=== PATIENT | male | born 1975 | race Caucasian/White ===

== ENCOUNTER 2016-07-02 12:51 | Emergency (ER) ==
[2016-07-02 13:33] VITALS: BP 152/102; TEMP 96.7; BMI 26.4
--- NOTE | 2016-07-02 13:41 | ED.PDOC ---
General ED Provider: Dr. PILI HANCOCK Chief Complaint: Tooth Problem Stated Complaint: patient is a 40 year old male who comes to the ER with a recent history of dental extraction after which he developed blisters to gums for which he saw his dentist and was diagnosed with fever blisters and given acyclovir. He had completed 2 rounds of clindamycin prior to extraction. he states that the gum pain is not better and is due to see his dentist and PCP next week. He also complaint of occipital area scalp skin lesion like freckels Time Seen by Physician: 13:20 Mode of Arrival: Walk-In Information Source: Patient Exam Limitations: No limitations Primary Care Provider: ZHENG GARCIA Nursing and Triage Documentation Reviewed and Agree: Yes EENT Complaint Exam - Dental/Oral Complaint/Exam Onset/Duration: 2 weeks Symptoms Are: Still present Timing: Constant Initial Severity: Moderate Current Severity: Moderate Location: gums Character: Reports: Aching, Throbbing Aggravating: Reports: Heat, Cold, Chewing Alleviating: Reports: None Associated Signs and Symptoms: Reports: Swelling Dental/Oral Surgical History: Reports: Periodontal Surgery Cervical Lymphadenopathy Present: No Facial Swelling Present: No Bleeding Present: No Oropharynx Findings: Absent: Clots, Active bleeding Septal Hematoma: No Foreign Body Present: No Dysphagia Present: No Drooling Present: No Asymmetrical Tonsillar Swelling Present: No Uvula Midline: No Jigna-tonsillar Fluctuence: No Trismus Present: No Palatal Petechiae Present: No Scarlatinaform Rash Present: No Lesions: Present: Gums. Absent: Lip, Tongue, Buccal Mucosa, Pharynx Exanthem: Absent: Lip, Gums, Tongue, Buccal Mucosa, Pharynx Vesicles: Absent: Lip, Gums, Tongue, Buccal Mucosa, Pharynx Differential Diagnoses: Gingivitis Review of Systems - Review Of Systems Constitutional: Reports: No symptoms Eyes: Reports: No symptoms Ears, Nose, Mouth, Throat: Reports: Mouth pain, Mouth swelling Respiratory: Reports: No symptoms Cardiac: Reports: No symptoms GI: Reports: No symptoms : Reports: No symptoms Musculoskeletal: Reports: No symptoms Skin: Reports: No symptoms Neurological: Reports: No symptoms Endocrine: Reports: No symptoms Hematologic/Lymphatic: Reports: No symptoms All Other Systems: Reviewed and Negative Past Medical History - Past Medical History Previously Healthy: No Endocrine: Reports: None Cardiovascular: Reports: CAD, Hypertension, CHF Respiratory: Reports: None Hematological: Reports: None Gastrointestinal: Reports: None Genitourinary: Reports: None Neuro/Psych: Reports: Anxiety Musculoskeletal: Reports: None Cancer: Reports: None 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, Fracture of right knee - Surgical History General Surgical History: Reports: Stent - Family History Family History: Reports: None - Social History Smoking Status: Current some day smoker, Dips snuff Hx Substance Use: Yes Alcohol Screening: None Physical Exam - Physical Exam Appearance: Ill-appearing Ill-appearing: Mild Pain Distress: Severe Eyes: JAYLYN, EOMI ENT: Erythema Neck: Supple Respiratory: Airway patent, Breath sounds clear, Breath sounds equal, Respirations nonlabored Cardiovascular: RRR, Pulses normal, No rub, No murmur Skin: Warm, Dry Psychiatric: Anxious Critical Care Note - Critical Care Note Total Time (mins): 0 Course - Course Vital Signs: Temp Pulse Resp BP Pulse Ox 07/02/16 12:52 96.7 F L 103 H 18 152/102 H 99 Departure - Departure Time of Disposition: 13:42 Disposition: HOME SELF-CARE Discharge Problem: Skin lesion of scalp, Gingivitis Instructions: Gingivitis (ED), Impetigo (ED) Condition: Fair Pt referred to PMD for follow-up: Yes Additional Instructions: Take medications as prescribed. Follow up with PCP in 2-3 days Prescriptions: Lidocaine HCl [Lidocaine Viscous 2%] 100 ml MM TID PRN #100 ml PRN Reason: mouth pain Mupirocin Calcium [Mupirocin] 30 gm TP BID #30 cream..g. Tramadol HCl [Ultram] 50 mg PO Q6H PRN #20 tablet PRN Reason: Severe Pain Allergies/Adverse Reactions: Allergies ketorolac tromethamine [From Toradol] Adverse Reaction (Verified 06/12/16 13:45) Penicillins Adverse Reaction (Verified 06/12/16 13:45) venom-wasp [Wasp Venom] Adverse Reaction (Verified 06/12/16 13:45) Home Medications: Ambulatory Orders Carvedilol [Coreg] 6.25 mg PO BID 04/23/13 Hydrochlorothiazide 12.5 mg PO DAILY 04/23/13 Lisinopril [Zestril] 20 mg PO BID 05/14/13 Nitroglycerin [Nitrostat] 0.4 mg SL DIRECTED PRN 07/23/13 Aspirin [Aspir-Low] 81 mg PO DAILY 03/01/16 Famotidine [Pepcid] 20 mg PO BID 03/01/16 Clonazepam 1 mg PO TID #90 06/09/16 Lidocaine HCl [Lidocaine Viscous 2%] 100 ml MM TID PRN #100 ml 07/02/16 Mupirocin Calcium [Mupirocin] 30 gm TP BID #30 cream..g. 07/02/16 Tramadol HCl [Ultram] 50 mg PO Q6H PRN #20 tablet 07/02/16 Disposition Discussed With: Patient, Family
== END 2016-07-02 14:02 | disposition home or self-care (01) ==
LOC: ED 12:51
DX: K05.10 Chronic gingivitis, plaque induced (principal); L98.8 Other specified disorders of the skin and subcutaneous tissue; Z98.890 Other specified postprocedural states; F17.290 Nicotine dependence, other tobacco product, uncomplicated
CPT/HCPCS: 99282

== ENCOUNTER 2016-07-19 13:14 | Emergency (ER) ==
[2016-07-19 13:20] VITALS: BP 142/99; TEMP 97.3; BMI 27.0
== END 2016-07-19 13:30 | disposition left against medical advice (07) ==
LOC: ED 13:14
DX: S01.90XA Unspecified open wound of unspecified part of head, initial encounter (principal)
CPT/HCPCS: 99281

== ENCOUNTER 2016-07-20 14:09 | Emergency (ER) ==
[2016-07-20 14:22] VITALS: BP 128/88; TEMP 97.1; BMI 27.8
== END 2016-07-20 15:20 | disposition left against medical advice (07) ==
LOC: ED 14:09
DX: Z53.21 Procedure and treatment not carried out due to patient leaving prior to being seen by health care provider (principal)

== ENCOUNTER 2016-07-23 10:51 | Emergency (ER) ==
[2016-07-23 10:59] VITALS: TEMP 96.3; BMI 29.2
[2016-07-23 11:06] VITALS: BP 144/94
--- NOTE | 2016-07-23 11:15 | ED.PDOC ---
General ED Provider: Dr. DEVIN MORIN Chief Complaint: Tooth Problem Stated Complaint: Gums with sores, knots on back of neck, sores on scalp; headache Time Seen by Physician: 11:10 Mode of Arrival: Walk-In Information Source: Patient Exam Limitations: No limitations Primary Care Provider: ZHENG GARCIA Nursing and Triage Documentation Reviewed and Agree: Yes Review of Systems - Review Of Systems Constitutional: Reports: No symptoms Eyes: Reports: No symptoms Ears, Nose, Mouth, Throat: Reports: Mouth pain (gums (post extraction) - "sores ") Skin: Reports: Rash (scalp "sores") Neurological: Reports: Headache All Other Systems: Reviewed and Negative Past Medical History - Past Medical History Previously Healthy: No Endocrine: Reports: None Cardiovascular: Reports: CAD, Hypertension, CHF Respiratory: Reports: None Hematological: Reports: None Gastrointestinal: Reports: None Genitourinary: Reports: None Neuro/Psych: Reports: Anxiety Musculoskeletal: Reports: None Cancer: Reports: None 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, Fracture of right knee - Surgical History General Surgical History: Reports: Stent - Family History Family History: Reports: None - Social History Smoking Status: Current some day smoker, Chews tobacco Hx Substance Use: No Alcohol Screening: None Physical Exam - Physical Exam Appearance: Well-appearing Pain Distress: Mild Eyes: JAYLYN ENT: Oropharynx normal Respiratory: Airway patent Skin: Warm, Dry, Normal color (Except small areas of superficial infection posterior and superior scalp) Neurological: Sensation intact, Alert, Oriented Psychiatric: Affect appropriate, Mood appropriate Critical Care Note - Critical Care Note Total Time (mins): 5 Course - Course Vital Signs: Temp Pulse Resp BP Pulse Ox 07/23/16 11:05 96.3 F L 97 H 18 144/94 H 98 07/23/16 10:52 96.3 F L 97 H 18 144/93 H 99 Departure - Departure Time of Disposition: 11:23 Disposition: HOME SELF-CARE Discharge Problem: Gingivitis, Cellulitis Instructions: Gingivitis (ED) Condition: Good Pt referred to PMD for follow-up: Yes Additional Instructions: Use pain medication as needed; follow up with Mr. Yosef SHAH at [facility] or with dentist. Prescriptions: Tramadol HCl [Ultram] 50 mg PO Q6H #10 tablet Allergies/Adverse Reactions: Allergies ketorolac tromethamine [From Toradol] Adverse Reaction (Verified 07/23/16 10:59) Penicillins Adverse Reaction (Verified 07/23/16 10:59) venom-wasp [Wasp Venom] Adverse Reaction (Verified 07/23/16 10:59) Home Medications: Ambulatory Orders Carvedilol [Coreg] 6.25 mg PO BID 04/23/13 Hydrochlorothiazide 12.5 mg PO DAILY 04/23/13 Lisinopril [Zestril] 20 mg PO BID 05/14/13 Nitroglycerin [Nitrostat] 0.4 mg SL DIRECTED PRN 07/23/13 Aspirin [Aspir-Low] 81 mg PO DAILY 03/01/16 Famotidine [Pepcid] 20 mg PO BID 03/01/16 Clonazepam 1 mg PO TID #90 06/09/16 Griseofulvin Ultramicrosize 125 mg PO Q8HR 07/19/16 Tramadol HCl [Ultram] 50 mg PO Q6H #10 tablet 07/23/16 Disposition Discussed With: Patient
== END 2016-07-23 11:34 | disposition home or self-care (01) ==
LOC: ED 10:51
DX: K05.10 Chronic gingivitis, plaque induced (principal); L03.90 Cellulitis, unspecified; R51 Headache; F17.210 Nicotine dependence, cigarettes, uncomplicated; Z79.899 Other long term (current) drug therapy
CPT/HCPCS: 99282

== ENCOUNTER 2016-08-07 13:55 | Emergency (ER) ==
[2016-08-07 14:02] VITALS: BP 141/88; TEMP 97.8; BMI 27.8
--- NOTE | 2016-08-07 14:12 | ED.PDOC ---
General ED Provider: Dr. BRIAN CHERY JR Chief Complaint: Non-specific Complaint Stated Complaint: HAD SEVERAL DENTAL EXTRACTIONS DONE AND THEN DEVELOPED MOUTH BLISTERS WHICH HAVE REOCCURED AT INTERVALS--STATES CONTINUES TO HAVE MOUTH INFECTIONS--HAS SEEN DENTIST AGAIN--HAS BEEN ON SEVERAL ROUNDS OF ANTIBIOTICS-- ALSO HAS LESIONS TO BACK OF SCALP[ End ]STATES HAS CONSTANT INFECTION TO MOUTH SINCE DENTAL EXTRACTION DONE--STATES IS NOT SEEKING PAIN MEDS--JUST WANTS MOUTH FIXED[ End ]97.8 114 20 97% 14101/02 HAD SEVERAL DENTAL EXTRACTIONS DONE AND THEN DEVELOPED MOUTH BLISTERS WHICH HAVE REOCCURED AT INTERVALS--STATES CONTINUES TO HAVE MOUTH INFECTIONS--HAS SEEN DENTIST AGAIN--HAS BEEN ON SEVERAL ROUNDS OF ANTIBIOTICS--ALSO HAS LESIONS TO BACK OF SCALP. [ End ]97.8 11 20 97 % 14101/02- oral lesons appear resolved- still feel like glass shards to patient, scalp lesions appear to be healing- getting larger and speading per patient:discussed need to see dentist and to use warm packs on head. : : Gums with sores, knots on back of neck, sores on scalp; headache: Gingivitis (ED). : 07/02/16 recent history of dental extraction blisters to gums fever blisters and given acyclovir. 2 rounds of clindamycin prior to extraction. gum pain is not better and to see his dentist and PCP next week. He also complaint of occipital area scalp skin lesion like freckels. Skin lesion of scalp, Gingivitis: Gingivitis (ED), Impetigo (ED). Lidocaine HCl [ Lidocaine Viscous 2%] 100 ml MM TID. Mupirocin Calcium [Mupirocin] 30 gm TP BID #30 cream..g. Tramadol HCl [Ultram] 50 mg PO Q6H PRN #20 tablet. : : my gums hurts and they are swollen--tylenol 3 is not helping my pain: Mouth pain, Mouth swelling: Gingivitis (ED). : 04/29/16 : im seeing ortho for fx in my tibia--i fell again last night and hurt my knee again--i can have script fo pain because i have a contract. : Radiologist: Negative: CT Scan. Dilaudid Phenergan : Knee Pain (ED). [From Toradol] Adverse Reaction Penicillins Adverse Reaction [Wasp Venom] Adverse Reaction [Coreg] Hydrochlorothiazide 12.5 mg[Zestril] [Nitrostat] [Aspir-Low] [Pepcid] [ Wellbutrin Sr] [Klonopin] [[place] 5-325 Tablet] [Fioricet 50-300-40 Mg Capsule] Time Seen by Physician: 14:21 Mode of Arrival: Walk-In Information Source: Patient Exam Limitations: No limitations Primary Care Provider: ZHENG GARCIA Nursing and Triage Documentation Reviewed and Agree: No Review of Systems - Review Of Systems Constitutional: Reports: No symptoms Eyes: Reports: No symptoms Ears, Nose, Mouth, Throat: Reports: Mouth pain Respiratory: Reports: No symptoms Cardiac: Reports: No symptoms GI: Reports: No symptoms : Reports: No symptoms Musculoskeletal: Reports: No symptoms Skin: Reports: Lesions, Lumps Neurological: Reports: No symptoms Endocrine: Reports: No symptoms Hematologic/Lymphatic: Reports: No symptoms All Other Systems: Other Past Medical History - Past Medical History Previously Healthy: No Endocrine: Reports: None Cardiovascular: 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), Hypertension, CHF Respiratory: Reports: None Hematological: Reports: None Gastrointestinal: Reports: None Genitourinary: Reports: None Neuro/Psych: Reports: Anxiety, Other (Optic nerve Atrophy of left eye) Musculoskeletal: Reports: None Cancer: Reports: None - Surgical History General Surgical History: Reports: Stent (PT HAS A HX OF 2 HEART CATHS AND ONE STENT PLACED), Orthopedic (Fracture of right knee) - Family History Family History: Reports: None, Heart (PGF) - Social History Smoking Status: Current some day smoker, Chews tobacco Hx Substance Use: No Alcohol Screening: None Physical Exam - Physical Exam Appearance: Well-appearing Ill-appearing: Mild Pain Distress: Mild Eyes: JAYLYN, EOMI, Conjunctiva clear ENT: Ears normal, Nose normal, Oropharynx normal (edentulous; complains of pain ; no lesions on exam) Neck: Supple Respiratory: Airway patent, Breath sounds clear, Breath sounds equal, Respirations nonlabored Cardiovascular: RRR, Pulses normal, No rub, No murmur GI/: Soft, Nontender, No masses, Bowel sounds normal, No Organomegaly Musculoskeletal: Normal strength, ROM intact, No edema, No calf tenderness Skin: Warm, Dry, Normal color Neurological: Sensation intact, Motor intact, Reflexes intact, Cranial nerves intact, Alert, Oriented Critical Care Note - Critical Care Note Total Time (mins): 0 Course - Course Vital Signs: Temp Pulse Resp BP Pulse Ox 08/07/16 13:55 97.8 F 114 H 20 141/88 H 97 Departure - Departure Time of Disposition: 14:23 Disposition: HOME SELF-CARE Discharge Problem: Pain in gums, Folliculitis Instructions: Folliculitis (ED), Gingivostomatitis (ED) Condition: Good Pt referred to PMD for follow-up: Yes Additional Instructions: neurontin four times a day for pain- only as needed warm soaks to scalp two to four times a day continue prescribed ointment Prescriptions: Gabapentin 300 mg PO TID PRN #30 capsule PRN Reason: PAIN Allergies/Adverse Reactions: Allergies ketorolac tromethamine [From Toradol] Adverse Reaction (Verified 08/07/16 14:03) Penicillins Adverse Reaction (Verified 08/07/16 14:03) venom-wasp [Wasp Venom] Adverse Reaction (Verified 08/07/16 14:03) Home Medications: Ambulatory Orders Carvedilol [Coreg] 6.25 mg PO BID 04/23/13 Hydrochlorothiazide 12.5 mg PO DAILY 04/23/13 Lisinopril [Zestril] 20 mg PO BID 05/14/13 Nitroglycerin [Nitrostat] 0.4 mg SL DIRECTED PRN 07/23/13 Aspirin [Aspir-Low] 81 mg PO DAILY 03/01/16 Famotidine [Pepcid] 20 mg PO BID 03/01/16 Clonazepam 1 mg PO TID #90 06/09/16 Gabapentin 300 mg PO TID PRN #30 capsule 08/07/16
== END 2016-08-07 14:33 | disposition home or self-care (01) ==
LOC: ED 13:55
DX: K05.10 Chronic gingivitis, plaque induced (principal); L73.9 Follicular disorder, unspecified; F17.220 Nicotine dependence, chewing tobacco, uncomplicated
CPT/HCPCS: 99282

== ENCOUNTER 2016-10-30 11:59 | Emergency (ER) ==
[2016-10-30 12:11] VITALS: BP 138/90; TEMP 97.2; BMI 26.4
--- NOTE | 2016-10-30 12:20 | ED.PDOC ---
General ED Provider: Dr. JAI RODRÍGUEZ Chief Complaint: Tooth Problem Stated Complaint: dental , oral pain Time Seen by Physician: 12:00 Mode of Arrival: Walk-In Information Source: Patient Exam Limitations: No limitations Primary Care Provider: BERNARD TRIPLETT Nursing and Triage Documentation Reviewed and Agree: Yes EENT Complaint Exam - Dental/Oral Complaint/Exam Mechanism of Injury: No known trauma Onset/Duration: chronic Symptoms Are: Still present Timing: Constant Initial Severity: Mild Current Severity: Mild Character: Reports: Dull, Aching Aggravating: Reports: None Alleviating: Reports: None Associated Signs and Symptoms: Denies: Swelling, Discharge, Fever, Foul odor, Foul taste in mouth Related History: Reports: Similar episode Cardiac Risk Factors: Reports: None Dental/Oral Surgical History: Reports: None Facial Swelling Present: No Bleeding Present: No Septal Hematoma: No Foreign Body Present: No Dysphagia Present: No Drooling Present: No Asymmetrical Tonsillar Swelling Present: No Uvula Midline: No Jigna-tonsillar Fluctuence: No Trismus Present: No Palatal Petechiae Present: No Scarlatinaform Rash Present: No Review of Systems - Review Of Systems Constitutional: Reports: No symptoms Eyes: Reports: No symptoms Ears, Nose, Mouth, Throat: Reports: No symptoms Respiratory: Reports: No symptoms Cardiac: Reports: No symptoms GI: Reports: No symptoms : Reports: No symptoms Musculoskeletal: Reports: No symptoms Skin: Reports: No symptoms Neurological: Reports: No symptoms Endocrine: Reports: No symptoms Hematologic/Lymphatic: Reports: No symptoms All Other Systems: Reviewed and Negative Past Medical History - Past Medical History Previously Healthy: No Endocrine: Reports: None Cardiovascular: 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), Hypertension, CHF Respiratory: Reports: None Hematological: Reports: None Gastrointestinal: Reports: None Genitourinary: Reports: None Neuro/Psych: Reports: Anxiety, Other (Optic nerve Atrophy of left eye) Musculoskeletal: Reports: None Cancer: Reports: None - Surgical History General Surgical History: Reports: Stent (PT HAS A HX OF 2 HEART CATHS AND ONE STENT PLACED), Orthopedic (Fracture of right knee) - Family History Family History: Reports: None, Heart (PGF) - Social History Smoking Status: Current some day smoker, Chews tobacco Hx Substance Use: No Alcohol Screening: None - Immunizations Tetanus Shot up to Date: No Physical Exam - Physical Exam Appearance: Well-appearing, No pain distress, Well-nourished Eyes: JAYLYN, EOMI, Conjunctiva clear ENT: Ears normal, Nose normal, Oropharynx normal Respiratory: Airway patent, Breath sounds clear, Breath sounds equal, Respirations nonlabored Cardiovascular: RRR, Pulses normal, No rub, No murmur GI/: Soft, Nontender, No masses, Bowel sounds normal, No Organomegaly Musculoskeletal: Normal strength, ROM intact, No edema, No calf tenderness Skin: Warm, Dry, Normal color Neurological: Sensation intact, Motor intact, Reflexes intact, Cranial nerves intact, Alert, Oriented Psychiatric: Affect appropriate, Mood appropriate Critical Care Note - Critical Care Note Total Time (mins): 0 Course - Course Vital Signs: Temp Pulse Resp BP Pulse Ox 10/30/16 12:00 97.2 F L 81 16 138/90 100 Departure - Departure Time of Disposition: 12:19 Disposition: HOME SELF-CARE Discharge Problem: Chronic gum disease Instructions: Gingivostomatitis (ED) Condition: Good Pt referred to PMD for follow-up: No Additional Instructions: Please call your Family Physician as soon as possible to schedule a follow-up appointment. Allergies/Adverse Reactions: Allergies ketorolac tromethamine [From Toradol] Adverse Reaction (Verified 10/30/16 12:10) Penicillins Adverse Reaction (Verified 10/30/16 12:10) venom-wasp [Wasp Venom] Adverse Reaction (Verified 10/30/16 12:10) Home Medications: Ambulatory Orders Carvedilol [Coreg] 6.25 mg PO BID 04/23/13 Hydrochlorothiazide 12.5 mg PO DAILY 04/23/13 Lisinopril [Zestril] 20 mg PO BID 05/14/13 Nitroglycerin [Nitrostat] 0.4 mg SL DIRECTED PRN 07/23/13 Aspirin [Aspir-Low] 81 mg PO DAILY 03/01/16 Famotidine [Pepcid] 20 mg PO BID 03/01/16 Clonazepam 1 mg PO TID #90 06/09/16 Gabapentin 300 mg PO TID PRN #30 capsule 08/07/16
== END 2016-10-30 12:28 | disposition home or self-care (01) ==
LOC: ED 11:59
DX: K05.10 Chronic gingivitis, plaque induced (principal); F17.210 Nicotine dependence, cigarettes, uncomplicated; F17.220 Nicotine dependence, chewing tobacco, uncomplicated
CPT/HCPCS: 99282

== ENCOUNTER 2016-10-31 23:20 | Emergency (ER) ==
[2016-10-31 23:36] VITALS: BP 148/95; TEMP 98.1; BMI 27.0
[2016-10-31] MEDS ORDERED: AUGMENTIN 500-125 MG TAB PO STA (23:47)
[2016-10-31] MEDS ORDERED: NORCO 7.5-325 PO STA (23:47)
--- NOTE | 2016-10-31 23:50 | ED.PDOC ---
General ED Provider: Dr. TRENTON CHAND Chief Complaint: Tooth Problem Stated Complaint: swollen gums, and hurting, Time Seen by Physician: 23:48 Mode of Arrival: Walk-In Information Source: Patient Primary Care Provider: BERNARD TRIPLETT Nursing and Triage Documentation Reviewed and Agree: Yes EENT Complaint Exam - Dental/Oral Complaint/Exam Mechanism of Injury: Unknown Symptoms Are: Still present Timing: Constant Initial Severity: Mild Current Severity: Mild Character: Reports: Dull, Aching Aggravating: Reports: Chewing Alleviating: Reports: None Associated Signs and Symptoms: Reports: Swelling, Foul odor, Foul taste in mouth Related History: Reports: Similar episode Cardiac Risk Factors: Reports: None Dental/Oral Surgical History: Reports: None Tooth Findings: Present: Cellulitis Cervical Lymphadenopathy Present: No Facial Swelling Present: No Differential Diagnoses: Dental Abcess, Gingivitis Review of Systems - Review Of Systems Constitutional: Reports: No symptoms Eyes: Reports: No symptoms Ears, Nose, Mouth, Throat: Reports: Mouth pain Respiratory: Reports: No symptoms Cardiac: Reports: No symptoms GI: Reports: No symptoms : Reports: No symptoms Musculoskeletal: Reports: No symptoms Skin: Reports: No symptoms Neurological: Reports: No symptoms Endocrine: Reports: No symptoms Hematologic/Lymphatic: Reports: No symptoms All Other Systems: Reviewed and Negative Past Medical History - Past Medical History Previously Healthy: No Endocrine: Reports: None Cardiovascular: 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), Hypertension, CHF Respiratory: Reports: None Hematological: Reports: None Gastrointestinal: Reports: None Genitourinary: Reports: None Neuro/Psych: Reports: Anxiety, Other (Optic nerve Atrophy of left eye) Musculoskeletal: Reports: None Cancer: Reports: None - Surgical History General Surgical History: Reports: Stent (PT HAS A HX OF 2 HEART CATHS AND ONE STENT PLACED), Orthopedic (Fracture of right knee) - Family History Family History: Reports: None, Heart (PGF) - Social History Smoking Status: Current some day smoker, Chews tobacco, Dips snuff Hx Substance Use: No Alcohol Screening: None - Immunizations Tetanus Shot up to Date: Yes Physical Exam - Physical Exam Appearance: Well-appearing, No pain distress, Well-nourished Eyes: JAYLYN, EOMI, Conjunctiva clear ENT: Ears normal, Nose normal, Oropharynx normal Respiratory: Airway patent, Breath sounds clear, Breath sounds equal, Respirations nonlabored Cardiovascular: RRR, Pulses normal, No rub, No murmur GI/: Soft, Nontender, No masses, Bowel sounds normal, No Organomegaly Musculoskeletal: Normal strength, ROM intact, No edema, No calf tenderness Skin: Warm, Dry, Normal color Neurological: Sensation intact, Motor intact, Reflexes intact, Cranial nerves intact, Alert, Oriented Psychiatric: Affect appropriate, Mood appropriate Critical Care Note - Critical Care Note Total Time (mins): 0 Course - Course Orders, Labs, Meds: Orders Category Date Time Status Amoxicillin/Potassium Clav [Augmentin 500-125 mg Tab] MEDS 10/31/16 23:47 Stat 1 tab PO ONCE STA Hydrocodone Bit/Acetaminophen [[place] 7.5-325] MEDS 10/31/16 23:47 Stat 1 tab PO ONCE STA Vital Signs: Temp Pulse Resp BP Pulse Ox 10/31/16 23:24 98.1 F 86 20 148/95 H 95 Departure - Departure Time of Disposition: 00:00 Disposition: HOME SELF-CARE Discharge Problem: Gingivitis Instructions: Gingivitis (ED) Condition: Stable Pt referred to PMD for follow-up: Yes (dentist.) Additional Instructions: NO DIPPING Prescriptions: Clindamycin HCl 300 mg PO TID #15 capsule Hydrocodone Bit/Acetaminophen [[place] 7.5-325] 1 each PO Q8H #14 tablet Allergies/Adverse Reactions: Allergies ketorolac tromethamine [From Toradol] Adverse Reaction (Verified 10/31/16 23:35) Penicillins Adverse Reaction (Verified 10/31/16 23:35) venom-wasp [Wasp Venom] Adverse Reaction (Verified 10/31/16 23:35) Home Medications: Ambulatory Orders Carvedilol [Coreg] 6.25 mg PO BID 04/23/13 Hydrochlorothiazide 12.5 mg PO DAILY 04/23/13 Lisinopril [Zestril] 20 mg PO BID 05/14/13 Nitroglycerin [Nitrostat] 0.4 mg SL DIRECTED PRN 07/23/13 Famotidine [Pepcid] 20 mg PO BID 03/01/16 Gabapentin 300 mg PO TID 10/31/16 Clindamycin HCl 300 mg PO TID #15 capsule 11/01/16 Hydrocodone Bit/Acetaminophen [[place] 7.5-325] 1 each PO Q8H #14 tablet 11/01/16 Disposition Discussed With: Patient, Family
== END 2016-11-01 00:25 | disposition home or self-care (01) ==
LOC: ED 23:20
DX: K05.10 Chronic gingivitis, plaque induced (principal); F17.210 Nicotine dependence, cigarettes, uncomplicated; F17.220 Nicotine dependence, chewing tobacco, uncomplicated
CPT/HCPCS: 99283

== ENCOUNTER 2016-12-02 08:22 | Emergency (ER) ==
[2016-12-02 08:25] VITALS: BP 139/86; TEMP 96.9; BMI 27.0
--- NOTE | 2016-12-02 08:47 | ED.PDOC ---
General ED Provider: Dr. TRENTON CHAND Chief Complaint: Tooth Problem Stated Complaint: gums swollen painful, foul smell. seen dentist 10 days ago, Time Seen by Physician: 08:45 Mode of Arrival: Walk-In Information Source: Patient Primary Care Provider: BERNARD TRIPLETT Nursing and Triage Documentation Reviewed and Agree: Yes EENT Complaint Exam - Dental/Oral Complaint/Exam Mechanism of Injury: No known trauma Symptoms Are: Still present Timing: Constant Initial Severity: Moderate Current Severity: Moderate Character: Reports: Aching Aggravating: Reports: Chewing Alleviating: Reports: None Associated Signs and Symptoms: Reports: Swelling, Foul odor, Foul taste in mouth Related History: Reports: Similar episode Cardiac Risk Factors: Reports: None Dental/Oral Surgical History: Reports: None Tooth Findings: Present: Normal findings (no teeth, all the gums swollen, ), Percussion tenderness Cervical Lymphadenopathy Present: No Facial Swelling Present: No Bleeding Present: No Septal Hematoma: No Foreign Body Present: No Differential Diagnoses: Gingivitis Review of Systems - Review Of Systems Constitutional: Reports: No symptoms Eyes: Reports: No symptoms Ears, Nose, Mouth, Throat: Reports: Mouth pain Respiratory: Reports: No symptoms Cardiac: Reports: No symptoms GI: Reports: No symptoms : Reports: No symptoms Musculoskeletal: Reports: No symptoms Skin: Reports: No symptoms Neurological: Reports: No symptoms Endocrine: Reports: No symptoms Hematologic/Lymphatic: Reports: No symptoms All Other Systems: Reviewed and Negative Past Medical History - Past Medical History Previously Healthy: No Endocrine: Reports: None Cardiovascular: 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), Hypertension, CHF Respiratory: Reports: None Hematological: Reports: None Gastrointestinal: Reports: None Genitourinary: Reports: None Neuro/Psych: Reports: Anxiety, Other (Optic nerve Atrophy of left eye) Musculoskeletal: Reports: None Cancer: Reports: None - Surgical History General Surgical History: Reports: Stent (PT HAS A HX OF 2 HEART CATHS AND ONE STENT PLACED), Orthopedic (Fracture of right knee) - Family History Family History: Reports: None, Heart (PGF) - Social History Smoking Status: Current some day smoker, Chews tobacco, Dips snuff Hx Substance Use: No Alcohol Screening: None Physical Exam - Physical Exam Appearance: Ill-appearing, Obese Pain Distress: Moderate Eyes: JAYLYN, EOMI, Conjunctiva clear ENT: Ears normal, Nose normal, Oropharynx normal Respiratory: Airway patent, Breath sounds clear, Breath sounds equal, Respirations nonlabored Cardiovascular: RRR, Pulses normal, No rub, No murmur GI/: Soft, Nontender, No masses, Bowel sounds normal, No Organomegaly Musculoskeletal: Normal strength, ROM intact, No edema, No calf tenderness Skin: Warm, Dry, Normal color Neurological: Sensation intact, Motor intact, Reflexes intact, Cranial nerves intact, Alert, Oriented Psychiatric: Affect appropriate, Mood appropriate Critical Care Note - Critical Care Note Total Time (mins): 0 Course - Course Vital Signs: Temp Pulse Resp BP Pulse Ox 12/02/16 08:22 96.9 F L 106 H 18 139/86 97 Departure - Departure Time of Disposition: 08:47 Disposition: HOME SELF-CARE Discharge Problem: Gingivitis Instructions: Gingivitis (ED) Condition: Stable Pt referred to PMD for follow-up: Yes (dentist) Additional Instructions: continue cipro, patient has them from dentist Prescriptions: Hydrocodone Bit/Acetaminophen [[place] 7.5-325] 1 each PO Q8H #10 tablet Allergies/Adverse Reactions: Allergies ketorolac tromethamine [From Toradol] Adverse Reaction (Verified 12/02/16 08:25) Penicillins Adverse Reaction (Verified 12/02/16 08:25) venom-wasp [Wasp Venom] Adverse Reaction (Verified 12/02/16 08:25) Home Medications: Ambulatory Orders Carvedilol [Coreg] 6.25 mg PO BID 04/23/13 Lisinopril [Zestril] 20 mg PO BID 05/14/13 Nitroglycerin [Nitrostat] 0.4 mg SL DIRECTED PRN 07/23/13 Famotidine [Pepcid] 20 mg PO BID 03/01/16 Hydrocodone Bit/Acetaminophen [[place] 7.5-325] 1 each PO Q8H #10 tablet 12/02/16 Disposition Discussed With: Patient
[2016-12-02] MEDS ORDERED: AUGMENTIN 500-125 MG TAB PO STA (08:48)
[2016-12-02] MEDS ORDERED: NORCO 5-325 PO STA (08:48)
== END 2016-12-02 08:59 | disposition home or self-care (01) ==
LOC: ED 08:22
DX: K05.10 Chronic gingivitis, plaque induced (principal); F17.210 Nicotine dependence, cigarettes, uncomplicated
CPT/HCPCS: 99282

== ENCOUNTER 2016-12-14 09:19 | Emergency (ER) ==
[2016-12-14 09:26] VITALS: BP 132/80; TEMP 97.3; BMI 26.4
--- NOTE | 2016-12-14 09:32 | ED.PDOC ---
General ED Provider: Dr. BRIAN CHERY JR Chief Complaint: Extremity Swelling/Pain Stated Complaint: FELL INJURING RIGHT LOWER LEG 2 DAYS AGO.TO SEE [facility] PA TOMORROW AT [facility]. SAYS THIS LEG FRACTURED IN THE PAST AT THE KNEE LEVEL.NOT SURE iT EVER HEALED. MOUTH PAIN DUE TO RECENT DENTAL PROCEDURES[ End ] swelling and pain since yesterday 97.3 101 20 98% 132/80 6/10 patietemelina has white area left mandibular alveolar ridge oral surgeon concernes planned biopsy still using copenhagen chew, pain right knee after jumping off tractor removing deisel nozzle spraying self slipping and falling no pain or tenderness when distracted on exam note healing on last ct- no pain meds had seen dr junior ( gone) will get referral in morning Time Seen by Physician: 09:31 Mode of Arrival: Walk-In Information Source: Patient Exam Limitations: No limitations Primary Care Provider: BERNARD TRIPLETT Nursing and Triage Documentation Reviewed and Agree: No Review of Systems - Review Of Systems Constitutional: Reports: Diaphoresis, Malaise, Weakness Eyes: Reports: No symptoms Ears, Nose, Mouth, Throat: Reports: Mouth pain Respiratory: Reports: No symptoms Cardiac: Reports: No symptoms GI: Reports: No symptoms : Reports: No symptoms Musculoskeletal: Reports: Joint pain Skin: Reports: No symptoms Neurological: Reports: No symptoms Endocrine: Reports: No symptoms Hematologic/Lymphatic: Reports: No symptoms All Other Systems: Other Past Medical History - Past Medical History Previously Healthy: No Endocrine: Reports: None Cardiovascular: 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), Hypertension, CHF Respiratory: Reports: None Hematological: Reports: None Gastrointestinal: Reports: None Genitourinary: Reports: None Neuro/Psych: Reports: Anxiety, Other (Optic nerve Atrophy of left eye) Musculoskeletal: Reports: None Cancer: Reports: None - Surgical History General Surgical History: Reports: Stent (PT HAS A HX OF 2 HEART CATHS AND ONE STENT PLACED), Orthopedic (Fracture of right knee) - Family History Family History: Reports: None, Heart (PGF) - Social History Smoking Status: Current some day smoker, Chews tobacco, Dips snuff Hx Substance Use: No Alcohol Screening: None - Immunizations Tetanus Shot up to Date: Yes Physical Exam - Physical Exam Appearance: Well-appearing, Thin Pain Distress: Mild ENT: Dry mucosa (white discoloration linear over left lower alveolar ridge states oral surgeon is worried states plan for biopsy when asked) Neck: Supple Respiratory: Airway patent Musculoskeletal: Normal strength, ROM intact, No edema, No calf tenderness ( tender at right knee but no discomfort when distracted) Skin: Warm, Dry, Normal color Neurological: Sensation intact, Motor intact, Reflexes intact, Cranial nerves intact, Alert, Oriented Psychiatric: Affect appropriate, Mood appropriate Critical Care Note - Critical Care Note Total Time (mins): 0 Course - Course Orders, Labs, Meds: Orders Category Date Time Status Acetaminophen [Tylenol] MEDS 12/14/16 09:39 Discontinued 1,000 mg PO ONCE STA TIBIA/FIBULA, RIGHT 2 VIEW Stat RADS 12/14/16 09:32 Completed Medications Discontinued Medications Generic Name Dose Route Start Last Admin Trade Name Freq PRN Reason Stop Dose Admin Acetaminophen 1,000 mg 12/14/16 09:39 12/14/16 09:56 Tylenol PO 12/14/16 09:40 1,000 mg ONCE STA Administration Vital Signs: Temp Pulse Resp BP Pulse Ox 12/14/16 09:19 97.3 F L 101 H 20 132/80 98 Departure - Departure Time of Disposition: 10:03 Disposition: HOME SELF-CARE Discharge Problem: Knee pain, Mandibular pain, Falls Instructions: Contusion in Adults (ED), Toothache (ED) Condition: Good Pt referred to PMD for follow-up: Yes Additional Instructions: follow up tomorrow as scheduled [place] for one day no refills follow up with oral surgeon as planned stop tobacco Prescriptions: Hydrocodone Bit/Acetaminophen [[place] 5-325] 1 - 2 tab PO Q6HR PRN #7 tablet PRN Reason: pain Allergies/Adverse Reactions: Allergies ketorolac tromethamine [From Toradol] Adverse Reaction (Verified 12/14/16 09:31) Penicillins Adverse Reaction (Verified 12/14/16 09:31) venom-wasp [Wasp Venom] Adverse Reaction (Verified 12/14/16 09:31) Home Medications: Ambulatory Orders Carvedilol [Coreg] 6.25 mg PO BID 04/23/13 Lisinopril [Zestril] 20 mg PO BID 05/14/13 Nitroglycerin [Nitrostat] 0.4 mg SL DIRECTED PRN 07/23/13 Famotidine [Pepcid] 20 mg PO BID 03/01/16 Hydrocodone Bit/Acetaminophen [[place] 7.5-325] 1 each PO Q8H #10 tablet 12/02/16 Hydrocodone Bit/Acetaminophen [[place] 5-325] 1 - 2 tab PO Q6HR PRN #7 tablet
[2016-12-14] MEDS ORDERED: TYLENOL PO STA (09:39)
--- NOTE | 2016-12-14 09:55 | DI ---
Exam: Two views right tibia and fibula. Clinical indication: Fall with recent fracture. Findings: There is no right knee or ankle effusion. There are no fractures, dislocations or other significant bony abnormality. Impression: Negative radiographs of the right tibia and fibula.
== END 2016-12-14 10:26 | disposition home or self-care (01) ==
LOC: ED 09:19
DX: M25.561 Pain in right knee (principal); R68.84 Jaw pain; W19.XXXA Unspecified fall, initial encounter; F17.210 Nicotine dependence, cigarettes, uncomplicated; F17.220 Nicotine dependence, chewing tobacco, uncomplicated
CPT/HCPCS: 99283

== ENCOUNTER 2017-01-01 11:46 | Emergency (ER) ==
[2017-01-01 11:59] VITALS: BP 154/104; TEMP 97.8; BMI 29.0
--- NOTE | 2017-01-01 12:10 | ED.PDOC ---
General ED Provider: Dr. BRIAN CHERY JR Chief Complaint: Non-specific Complaint Stated Complaint: PATIENT STATES HE HAD ALL HIS TEETH PULLED LAST MARCH. GUMS ARE STILL HURTING.[End]97.8 98 20 98% 154/104 03/05, patient states toradol of no benefit gums are worse- note white discoloration has spread to most of left lower alveolar ridge two areas of superficial ulceration- suspect oral cnacer or late lichen planus- needs urgent care has not seen oral surgeon- emergent visit scheudled monday- will allow one day norco- no refills Time Seen by Physician: 12:09 Mode of Arrival: Walk-In Information Source: Patient Exam Limitations: No limitations Primary Care Provider: BERNARD TRIPLETT Nursing and Triage Documentation Reviewed and Agree: No Review of Systems - Review Of Systems Constitutional: Reports: Malaise Eyes: Reports: No symptoms Ears, Nose, Mouth, Throat: Reports: Mouth pain, Throat swelling (left submandibular node) Respiratory: Reports: No symptoms Cardiac: Reports: Chest pain (seen this week for chest pain has cardilogy follow up ) GI: Reports: No symptoms : Reports: No symptoms Musculoskeletal: Reports: No symptoms Skin: Reports: No symptoms Neurological: Reports: No symptoms Endocrine: Reports: No symptoms Hematologic/Lymphatic: Reports: No symptoms All Other Systems: Other Past Medical History - Past Medical History Previously Healthy: No Endocrine: Reports: None Cardiovascular: 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), Hypertension, CHF Respiratory: Reports: None Hematological: Reports: None Gastrointestinal: Reports: None Genitourinary: Reports: None Neuro/Psych: Reports: Anxiety, Other (Optic nerve Atrophy of left eye) Musculoskeletal: Reports: None Cancer: Reports: None - Surgical History General Surgical History: Reports: Stent (PT HAS A HX OF 2 HEART CATHS AND ONE STENT PLACED), Orthopedic (Fracture of right knee) - Family History Family History: Reports: None, Heart (PGF) - Social History Smoking Status: Former smoker, Chews tobacco, Dips snuff Hx Substance Use: No Alcohol Screening: Occasionally - Immunizations Tetanus Shot up to Date: Yes Physical Exam - Physical Exam Appearance: Well-appearing, Thin Pain Distress: Moderate Eyes: JAYLYN, EOMI, Conjunctiva clear ENT: Oropharynx normal (except white plaque along alveolar ridge) Neck: Supple (left single node below mandibular angle) Respiratory: Airway patent, Breath sounds clear, Breath sounds equal, Respirations nonlabored Cardiovascular: RRR, Pulses normal, No rub, No murmur GI/: Soft, Nontender, No masses, Bowel sounds normal, No Organomegaly Musculoskeletal: Normal strength, ROM intact, No edema, No calf tenderness Skin: Warm, Dry, Normal color Neurological: Sensation intact, Motor intact, Reflexes intact, Cranial nerves intact, Alert, Oriented Psychiatric: Anxious Critical Care Note - Critical Care Note Total Time (mins): 0 Course - Course Vital Signs: Temp Pulse Resp BP Pulse Ox 01/01/17 11:51 97.8 F 98 H 20 154/104 H 98 Departure - Departure Time of Disposition: 12:25 Disposition: HOME SELF-CARE Discharge Problem: Lichen planus linearis Instructions: Toothache (ED), Mouth Care for the Cancer Patient (ED) Condition: Good Pt referred to PMD for follow-up: Yes (followup oral surgeon as scheduled) Additional Instructions: follow up as scheduled [place] no refills follow up with oral surgeon as planned stop tobacco Prescriptions: Hydrocodone Bit/Acetaminophen [[place] 5-325] 1 - 2 tab PO Q6HR PRN #12 tablet PRN Reason: pain Allergies/Adverse Reactions: Allergies ketorolac tromethamine [From Toradol] Adverse Reaction (Verified 12/14/16 09:31) Penicillins Adverse Reaction (Verified 12/14/16 09:31) venom-wasp [Wasp Venom] Adverse Reaction (Verified 12/14/16 09:31) Home Medications: Ambulatory Orders Carvedilol [Coreg] 6.25 mg PO BID 04/23/13 Lisinopril [Zestril] 20 mg PO BID 05/14/13 Nitroglycerin [Nitrostat] 0.4 mg SL DIRECTED PRN 07/23/13 Famotidine [Pepcid] 20 mg PO BID 03/01/16 Hydrocodone Bit/Acetaminophen [[place] 5-325] 1 - 2 tab PO Q6HR PRN #12 tablet 03/12
== END 2017-01-01 12:37 | disposition home or self-care (01) ==
LOC: ED 11:46
DX: L43.8 Other lichen planus (principal); K08.89 Other specified disorders of teeth and supporting structures; K08.109 Complete loss of teeth, unspecified cause, unspecified class; F17.220 Nicotine dependence, chewing tobacco, uncomplicated; Z79.899 Other long term (current) drug therapy
CPT/HCPCS: 99283

== ENCOUNTER 2017-03-24 14:00 | Emergency (ER) ==
[2017-03-24 14:01] VITALS: BMI 29.0
[2017-03-24 14:13] VITALS: BP 121/79; TEMP 99
[2017-03-24] MEDS ORDERED: TORADOL IM STA (14:23)
--- NOTE | 2017-03-24 14:23 | ED.PDOC ---
General ED Provider: Dr. SYED GAINES Chief Complaint: Fall Stated Complaint: Missed step walking down stairs, fell down last 5 stairs, twisting right knee. Right knee painful since. Onset 30 minutes ago. Time Seen by Physician: 14:19 Mode of Arrival: Walk-In Information Source: Patient Nursing and Triage Documentation Reviewed and Agree: Yes Musculoskeletal Complaint Exam - Knee Pain Complaint/Exam Mechanism of Injury: Reports: Trauma Onset/Duration: 30 minutes Symptoms Are: Still present Onset of Pain: Reports: Immediate Initial Severity: Severe Current Severity: Moderate Location: Reports: Diffuse Character: Reports: Sharp (sharp pain with any attemot at ROM or weight-bearing) , Aching, Throbbing Alleviating: Reports: Rest, Cold Aggravating: Reports: Movement, Weight bearing Able to Bear Weight: Yes (with difficulty) Septic Arthritis Risk Factors: Reports: None Gout Risk Factors: Reports: None, Male Knee Findings: Present: Tenderness, Limited range of motion Tenderness: Present: Joint Joy Test Positive: No Jaylen Test Positive: No Limited Range of Motion: Present: Active, Passive Differential Diagnoses: Closed Fracture, Sprain Review of Systems - Review Of Systems Constitutional: Reports: No symptoms Musculoskeletal: Reports: Joint pain (right knee) Skin: Reports: No symptoms Neurological: Reports: No symptoms Hematologic/Lymphatic: Reports: Blood clots All Other Systems: Reviewed and Negative (Patient states he is NOT allergic to Toradol. He states he said that in the past when he was narcotic-seeking.) Past Medical History - Past Medical History Previously Healthy: No Endocrine: Reports: None Cardiovascular: 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), Hypertension, CHF Respiratory: Reports: None Hematological: Reports: None Gastrointestinal: Reports: None Genitourinary: Reports: None Neuro/Psych: Reports: Anxiety, Other (Optic nerve Atrophy of left eye) Musculoskeletal: Reports: None Cancer: Reports: None Other Pertinent Past Medical History: Narcotic addiction: on naloxone and librium, states: Give him no narcotics - Surgical History General Surgical History: Reports: Stent (PT HAS A HX OF 2 HEART CATHS AND ONE STENT PLACED), Orthopedic (Fracture of right knee) - Family History Family History: Reports: None, Heart (PGF) - Social History Smoking Status: Former smoker, Chews tobacco, Dips snuff Hx Substance Use: No Alcohol Screening: None Lives: Alone - Immunizations Tetanus Shot up to Date: No Influenza Vaccine within 12 Months: No Pneumococcal Vaccine up to Date: No Physical Exam - Physical Exam Appearance: Well-appearing, Well-nourished Ill-appearing: None Pain Distress: Moderate Respiratory: Airway patent, Breath sounds clear, Breath sounds equal, Respirations nonlabored Cardiovascular: RRR, Pulses normal, No rub, No murmur Musculoskeletal: Normal strength, No calf tenderness, Limited ROM (right knee pain with any attempt at active or passive ROM), Edema (mild swelling about right knee) Skin: Warm, Dry, Normal color Neurological: Sensation intact, Motor intact, Reflexes intact, Cranial nerves intact, Alert, Oriented Psychiatric: Affect appropriate, Mood appropriate Interpretation - Radiology Interpretation Radiology Interpretation By: Radiologist Radiology Results: Negative Exam Interpreted: Other Xray Comments: Right knee: unremarkable Critical Care Note - Critical Care Note Total Time (mins): 0 Course - Course Orders, Labs, Meds: Orders Category Date Time Status Ketorolac Tromethamine [Toradol] MEDS 03/24/17 14:23 Discontinued 60 mg IM ONCE STA KNEE, RIGHT 4 VIEWS Stat RADS 03/24/17 14:23 Completed Medications Discontinued Medications Generic Name Dose Route Start Last Admin Trade Name Freq PRN Reason Stop Dose Admin Ketorolac Tromethamine 60 mg 03/24/17 14:23 03/24/17 14:34 Toradol IM 03/24/17 14:24 60 mg ONCE STA Administration Vital Signs: Temp Pulse Resp BP Pulse Ox 03/24/17 14:02 99.0 F 84 20 121/79 95 Departure - Departure Time of Disposition: 15:14 Disposition: HOME SELF-CARE Discharge Problem: Right knee sprain Instructions: Knee Sprain (ED) Condition: Good Pt referred to PMD for follow-up: No (See doctor if no better in one week) Additional Instructions: OTC ibuprofen 800 mg three times a day for 10 days Allergies/Adverse Reactions: Allergies Penicillins Adverse Reaction (Verified 03/24/17 14:13) venom-wasp [Wasp Venom] Adverse Reaction (Verified 03/24/17 14:13) Home Medications: Ambulatory Orders Famotidine [Pepcid] 20 mg PO BID 03/01/16 Buprenorphine HCl 8 mg SL BID 03/24/17 Disposition Discussed With: Patient
--- NOTE | 2017-03-24 15:08 | DI ---
EXAM: RIGHT KNEE. HISTORY: Injury, pain . FINDINGS: Right knee four view. Articular cartilage width is normal. There is no fracture or joint effusion. Bone density and soft tissues are within normal limits. IMPRESSION: No fracture or dislocation identified.
== END 2017-03-24 15:25 | disposition home or self-care (01) ==
LOC: ED 14:00
DX: S83.91XA Sprain of unspecified site of right knee, initial encounter (principal); W10.9XXA Fall (on) (from) unspecified stairs and steps, initial encounter
CPT/HCPCS: 96372; 99283

== ENCOUNTER 2017-08-27 20:42 | Emergency (ER) ==
[2017-08-27 20:52] VITALS: BP 121/95; TEMP 98.6; BMI 33.7
[2017-08-27] MEDS ORDERED: NORFLEX IM STA (21:24)
[2017-08-27] MEDS ORDERED: TORADOL IM STA (21:24)
[2017-08-27] MEDS ORDERED: KLONOPIN PO STA (21:25)
--- NOTE | 2017-08-27 21:28 | ED.PDOC ---
General ED Provider: Dr. CARINA DOW-ER Chief Complaint: Headache Stated Complaint: i have a headache--its left sided--i think its because i stopped my klonipin too fast Time Seen by Physician: 21:26 Mode of Arrival: Walk-In Information Source: Patient Exam Limitations: No limitations Nursing and Triage Documentation Reviewed and Agree: Yes Reviewed sepsis parameters & appropriate labs ordered?: Yes System Inflammatory Response Syndrome: Not Applicable Sepsis Protocol: For patient's 13 years and over: Temp is 96.8 and below OR 101 and greater Pulse >90 BPM Resp >20/minute Acutely Altered Mental Status Are patient's symptoms suggestive of a new infection, such as: -Pneumonia -Skin, Soft Tissue -Endocarditis -UTI -Bone, Joint Infection -Implantable Device -Acute Abdominal Infection -Wound Infection -Meningitis -Blood Stream Catheter Infection -Unknown Neurological Complaint Exam - Headache Complaint/Exam Onset: Gradual Duration: several hours Symptoms Are: Still present Worst Headache Ever: No Initial Severity: Mild Current Severity: Moderate Location: Left, Frontal, Temporal Character: Reports: Dull, Throbbing Aggravating: Reports: None Alleviating: Reports: None Associated Signs and Symptoms: Denies: Dizziness, Seizure, Nausea, Vomiting, Sinus pressure, Fever, Neck pain, Neck stiffness, Decreased LOC, Visual changes Related Surgical History: Reports: None SAH Risk Factors: Reports: None Meningitis Risk Factors: Reports: None SDH Risk Factors: Reports: None Temporal Arteritis Risk Factors: Reports: Normal Head CT Within Last 12 Months: Yes Fundoscopic Exam: Present: Normal Findings Papilledema Present: No Temporal Artery Tenderness: Present: None Sinus Tenderness: Present: None TMJ Tenderness: Present: None Glascow Coma Scale (see protocol): 15 Meningeal Signs Positive: No Pain on Passive Flexion-Positive Kernig's: No ROM Limited In: No Limitiations Focal Weakness: Present: None Focal Sensory Loss: Present: None Gait: Normal Nystagmus Present: No Gag Reflex Present: Yes [id number]: Normal Findings Romberg Test Positive: No Babinski Sign: Positive Right, Negative Right, Negative Left Differential Diagnoses: Migraine Review of Systems - Review Of Systems Constitutional: Reports: No symptoms Eyes: Reports: No symptoms Ears, Nose, Mouth, Throat: Reports: No symptoms Respiratory: Reports: No symptoms Cardiac: Reports: No symptoms GI: Reports: No symptoms : Reports: No symptoms Musculoskeletal: Reports: No symptoms Skin: Reports: No symptoms Neurological: Reports: Headache Endocrine: Reports: No symptoms Hematologic/Lymphatic: Reports: No symptoms All Other Systems: Reviewed and Negative Past Medical History - Past Medical History Previously Healthy: No Endocrine: Reports: None Cardiovascular: 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), Hypertension, CHF Respiratory: Reports: None Hematological: Reports: None Gastrointestinal: Reports: None Genitourinary: Reports: None Neuro/Psych: Reports: Anxiety, Other (Optic nerve Atrophy of left eye) Musculoskeletal: Reports: None Cancer: Reports: None Other Pertinent Past Medical History: Narcotic addiction: on naloxone and librium, states: Give him no narcotics - Surgical History General Surgical History: Reports: Stent (PT HAS A HX OF 2 HEART CATHS AND ONE STENT PLACED), Orthopedic (Fracture of right knee) - Family History Family History: Reports: None, Heart (PGF) - Social History Smoking Status: Former smoker, Chews tobacco, Dips snuff Hx Substance Use: Yes (went thru tx to get off opiates) Alcohol Screening: None - Immunizations Tetanus Shot up to Date: Yes Influenza Vaccine within 12 Months: No Pneumococcal Vaccine up to Date: No Physical Exam - Physical Exam Appearance: Well-appearing Pain Distress: Moderate Eyes: JAYLYN, EOMI, Conjunctiva clear ENT: Ears normal, Nose normal, Oropharynx normal Neck: Supple Respiratory: Airway patent, Breath sounds clear, Breath sounds equal, Respirations nonlabored Cardiovascular: RRR, Pulses normal, No rub, No murmur GI/: Soft Musculoskeletal: Normal strength, ROM intact, No edema, No calf tenderness Skin: Warm, Dry, Normal color Neurological: Sensation intact, Motor intact, Reflexes intact, Cranial nerves intact, Alert, Oriented Psychiatric: Affect appropriate, Mood appropriate Interpretation - Radiology Interpretation Radiology Interpretation By: Radiologist Radiology Results: Negative Exam Interpreted: CT Scan Re-Evaluation - Re-Evaluation Time of Re-Evaluation: 21:43 Status: Improved Vital Signs Stable: Yes Pain Level: 0 Appearance: NAD Lungs: Clear Skin: Warm and Dry Neuro: Alert and Oriented X3 CV: RRR Critical Care Note - Critical Care Note Total Time (mins): 0 Course - Course Orders, Labs, Meds: Orders Category Date Time Status Clonazepam [Klonopin] MEDS 08/27/17 21:25 Discontinued 0.5 mg PO ONCE STA Ketorolac Tromethamine [Toradol] MEDS 08/27/17 21:24 Discontinued 60 mg IM ONCE STA Orphenadrine Citrate [Norflex] MEDS 08/27/17 21:24 Discontinued 60 mg IM ONCE STA CT HEAD W/O CONTRAST Stat RADS 08/27/17 21:15 Completed Medications Discontinued Medications Generic Name Dose Route Start Last Admin Trade Name Luis Alfredo PRN Reason Stop Dose Admin Clonazepam 0.5 mg 08/27/17 21:25 08/27/17 21:33 Klonopin PO 08/27/17 21:26 0.5 mg ONCE STA Administration Ketorolac Tromethamine 60 mg 08/27/17 21:24 08/27/17 21:35 Toradol IM 08/27/17 21:25 60 mg ONCE STA Administration Orphenadrine Citrate 60 mg 08/27/17 21:24 08/27/17 21:35 Norflex IM 08/27/17 21:25 60 mg ONCE STA Administration Vital Signs: Temp Pulse Resp BP Pulse Ox 08/27/17 20:43 98.6 F 87 20 121/95 H 97 Departure - Departure Time of Disposition: 21:44 Disposition: HOME SELF-CARE Discharge Problem: Headache Qualifiers: Headache type: unspecified Headache chronicity pattern: acute headache Intractability: not intractable Qualified Code(s): R51 - Headache Instructions: Tension Headache (ED) Condition: Good Pt referred to PMD for follow-up: Yes IPMP verified?: No Additional Instructions: f/u with pcp Allergies/Adverse Reactions: Allergies Penicillins Adverse Reaction (Verified 08/27/17 20:52) venom-wasp [Wasp Venom] Adverse Reaction (Verified 08/27/17 20:52) Home Medications: Ambulatory Orders Buprenorphine HCl 8 mg SL BID 03/24/17 Ranitidine HCl [Zantac] 150 mg PO QDAC 08/27/17 Disposition Discussed With: Patient
--- NOTE | 2017-08-27 21:34 | CT ---
EXAM: CT brain without contrast HISTORY: Headache TECHNIQUE: Multi-slice transaxial helical with coronal and sagital reformated images COMPARISON: CT brain from 02/13/2017 FINDINGS: The midline structures are central. The ventricles are neither dilated nor displaced. Th e sulci are slightly prominent at the convexities. Minimal low attenuation in the periventricular whi te matter is nonspecific but is likely related to chronic microvascular ischemic disease. No acute i ntraparenchymal or extraaxial hemorrhagic collections are detected. The calvarium is intact. Scattered ethmoid air cells have thickened mucous membranes. The other vis ible portions of the paranasal sinuses and mastoid air cells are clear. IMPRESSION: 1. No acute intracranial process. 2. Minimal age-related involution and chronic microvascular ischemic disease. 3. Scattered ethmoid air cell disease.
== END 2017-08-27 21:40 | disposition home or self-care (01) ==
LOC: ED 20:42
DX: R51 Headache (principal); Z72.0 Tobacco use
CPT/HCPCS: 96372; 99283

== ENCOUNTER 2017-08-30 15:22 | Emergency (ER) ==
[2017-08-30 15:28] VITALS: BP 137/85; TEMP 98.1; BMI 34.2
[2017-08-30] MEDS ORDERED: ZOFRAN 4 MG/2 ML IM STA (15:38)
[2017-08-30] MEDS ORDERED: MORPHINE 2 MG/ML SYRINGE IM STA (15:38)
[2017-08-30] MEDS ORDERED: TORADOL IM STA (15:39)
--- NOTE | 2017-08-30 16:11 | CT ---
EXAM: CT of the head without contrast History: Headache. Comparison: Head CT 08/27/2017 Technique: Multiplanar CT images through the head were obtained without the administration of IV con trast Findings: Persistent mild mucosal thickening of the ethmoid air cells. Mastoid air cells are clear i n general. No acute calvarial abnormalities. Intracranially, there is mild frontal atrophy. No dominant mass or midline shift. No hydrocephalous . No acute intracranial hemorrhage or abnormal extraaxial fluid collections. Impression: 1. No acute intracranial process. 2. Mild frontal atrophy. 3. No change in the mild ethmoid sinus disease
--- NOTE | 2017-08-30 16:27 | ED.PDOC ---
General ED Provider: Dr. JAI RODRÍGUEZ Chief Complaint: Headache Stated Complaint: headache Time Seen by Physician: 15:22 (seen with nurse at all times ) Mode of Arrival: Walk-In Information Source: Patient Exam Limitations: No limitations Nursing and Triage Documentation Reviewed and Agree: Yes Reviewed sepsis parameters & appropriate labs ordered?: Yes System Inflammatory Response Syndrome: Not Applicable Sepsis Protocol: For patient's 13 years and over: Temp is 96.8 and below OR 101 and greater Pulse >90 BPM Resp >20/minute Acutely Altered Mental Status Are patient's symptoms suggestive of a new infection, such as: -Pneumonia -Skin, Soft Tissue -Endocarditis -UTI -Bone, Joint Infection -Implantable Device -Acute Abdominal Infection -Wound Infection -Meningitis -Blood Stream Catheter Infection -Unknown System Inflammatory Response Syndrome: Not Applicable Neurological Complaint Exam - Headache Complaint/Exam Onset: Gradual Duration: 3 days was seen for same issue and ct was negative during first visit Symptoms Are: Still present Timing: Intermittent Episodes Lasting: Minutes Worst Headache Ever: No Initial Severity: Mild Current Severity: Mild Character: Reports: Typical headache Aggravating: Reports: None Alleviating: Reports: None Associated Signs and Symptoms: Denies: Dizziness, Seizure, Nausea, Vomiting, Sinus pressure, Fever, Neck pain, Neck stiffness, Decreased LOC, Visual changes Related History: Reports: Similar episode Related Surgical History: Reports: None SAH Risk Factors: Reports: None Meningitis Risk Factors: Reports: None SDH Risk Factors: Reports: None Temporal Arteritis Risk Factors: Reports: None Normal Head CT Within Last 12 Months: Yes Fundoscopic Exam: Present: Normal Findings Papilledema Present: No Temporal Artery Tenderness: Present: None Sinus Tenderness: Present: None TMJ Tenderness: Present: None Glascow Coma Scale (see protocol): 15 Meningeal Signs Positive: No ROM Limited In: No Limitiations Focal Weakness: Present: None Focal Sensory Loss: Present: None Gait: Normal Nystagmus Present: No Gag Reflex Present: No Babinski Sign: Negative Right, Negative Left Review of Systems - Review Of Systems Constitutional: Reports: No symptoms Eyes: Reports: No symptoms Ears, Nose, Mouth, Throat: Reports: Ear pain (left) Respiratory: Reports: No symptoms Cardiac: Reports: No symptoms GI: Reports: No symptoms : Reports: No symptoms Musculoskeletal: Reports: No symptoms Skin: Reports: No symptoms Neurological: Reports: No symptoms Endocrine: Reports: No symptoms Hematologic/Lymphatic: Reports: No symptoms All Other Systems: Reviewed and Negative Past Medical History - Past Medical History Previously Healthy: No Endocrine: Reports: None Cardiovascular: 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), Hypertension, CHF Respiratory: Reports: None Hematological: Reports: None Gastrointestinal: Reports: None Genitourinary: Reports: None Neuro/Psych: Reports: Anxiety, Other (Optic nerve Atrophy of left eye) Musculoskeletal: Reports: None Cancer: Reports: None Other Pertinent Past Medical History: Narcotic addiction: on naloxone and librium, states: Give him no narcotics - Surgical History General Surgical History: Reports: Stent (PT HAS A HX OF 2 HEART CATHS AND ONE STENT PLACED), Orthopedic (Fracture of right knee) - Family History Family History: Reports: None, Heart (PGF) - Social History Smoking Status: Former smoker, Chews tobacco, Dips snuff Hx Substance Use: Yes (went thru tx to get off opiates) Alcohol Screening: None - Immunizations Influenza Vaccine within 12 Months: No Pneumococcal Vaccine up to Date: No Physical Exam - Physical Exam Appearance: Well-appearing, No pain distress, Well-nourished Eyes: JAYLYN, EOMI, Conjunctiva clear ENT: Ears normal, Nose normal, Oropharynx normal Respiratory: Airway patent, Breath sounds clear, Breath sounds equal, Respirations nonlabored Cardiovascular: RRR, Pulses normal, No rub, No murmur GI/: Soft, Nontender, No masses, Bowel sounds normal, No Organomegaly Musculoskeletal: Normal strength, ROM intact, No edema, No calf tenderness Skin: Warm, Dry, Normal color Neurological: Sensation intact, Motor intact, Reflexes intact, Cranial nerves intact, Alert, Oriented Psychiatric: Affect appropriate, Mood appropriate Interpretation - Radiology Interpretation Radiology Interpretation By: Radiologist Radiology Results: No acute changes Critical Care Note - Critical Care Note Total Time (mins): 0 Course - Course Orders, Labs, Meds: Lab Review 08/30/17 15:40 Influ A Molecular Assay Negative by naat Influ B Molecular Assay Negative by naat Orders Category Date Time Status FLU A/B MOLECULAR Stat LAB 08/30/17 15:40 Completed MOLECULAR GROUP A STREP Stat LAB 08/30/17 15:40 Completed Ketorolac Tromethamine [Toradol] MEDS 08/30/17 15:39 Discontinued 60 mg IM ONCE STA Morphine Sulfate [Morphine 2 mg/ml Syringe] MEDS 08/30/17 15:38 Discontinued 4 mg IM ONCE STA Ondansetron HCl/Pf [Zofran 4 mg/2 ml] MEDS 08/30/17 15:38 Discontinued 8 mg IM ONCE STA CT HEAD W/O CONTRAST Stat RADS 08/30/17 15:38 Completed Medications Discontinued Medications Generic Name Dose Route Start Last Admin Trade Name Luis Alfredo PRN Reason Stop Dose Admin Ketorolac Tromethamine 60 mg 08/30/17 15:39 08/30/17 16:22 Toradol IM 08/30/17 15:40 60 mg ONCE STA Administration Morphine Sulfate 4 mg 08/30/17 15:38 08/30/17 16:22 Morphine 2 Mg/Ml Syringe IM 08/30/17 15:39 4 mg ONCE STA Administration Ondansetron HCl 8 mg 08/30/17 15:38 08/30/17 16:24 Zofran 4 Mg/2 Ml IM 08/30/17 15:39 8 mg ONCE STA Administration Vital Signs: Temp Pulse Resp BP Pulse Ox 08/30/17 15:22 98.1 F 93 H 16 137/85 98 Departure - Departure Time of Disposition: 16:27 Disposition: HOME SELF-CARE Discharge Problem: Headache Instructions: Acute Headache (ED) Condition: Good Pt referred to PMD for follow-up: Yes IPMP verified?: No Additional Instructions: Please call your Family Physician as soon as possible to schedule a follow-up appointment. Allergies/Adverse Reactions: Allergies Penicillins Adverse Reaction (Verified 08/30/17 15:29) venom-wasp [Wasp Venom] Adverse Reaction (Verified 08/30/17 15:29) Home Medications: Ambulatory Orders Buprenorphine HCl 8 mg SL BID 03/24/17 Ranitidine HCl [Zantac] 150 mg PO QDAC 08/27/17
== END 2017-08-30 17:15 | disposition home or self-care (01) ==
LOC: ED 15:22
DX: R51 Headache (principal); Z72.0 Tobacco use
CPT/HCPCS: 87502; 87651; 96372; 99283

== ENCOUNTER 2017-09-04 16:15 | Outpatient (CLI) | END 2017-09-04 16:16 | disposition home or self-care (01) | LOC: FCC-LAB 16:15 | PROVIDERS: ATTEND Family Medicine | DX: R51 Headache (principal); F19.10 Other psychoactive substance abuse, uncomplicated; F11.20 Opioid dependence, uncomplicated; Z86.19 Personal history of other infectious and parasitic diseases; Z20.5 Contact with and (suspected) exposure to viral hepatitis | CPT/HCPCS: 36415; 80053; 85025; 85651; 87522; 87902 ==

== ENCOUNTER 2017-09-07 15:45 | Outpatient (CLI) | END 2017-09-07 15:46 | disposition home or self-care (01) | LOC: FCC-LAB 15:45 | PROVIDERS: ATTEND Family Medicine | DX: R51 Headache (principal); H57.9 Unspecified disorder of eye and adnexa | CPT/HCPCS: 36415; 85651 ==

== ENCOUNTER 2017-09-11 12:15 | Outpatient (CLI) | END 2017-09-11 12:16 | disposition home or self-care (01) | LOC: FCC-LAB 12:15 | PROVIDERS: ATTEND Family Medicine | DX: F19.10 Other psychoactive substance abuse, uncomplicated (principal); F11.20 Opioid dependence, uncomplicated; Z76.5 Malingerer [conscious simulation] | CPT/HCPCS: 80306 ==

== ENCOUNTER 2017-10-15 11:30 | Emergency (ER) ==
[2017-10-15 11:37] VITALS: BP 164/88; TEMP 97.3; BMI 31.2
--- NOTE | 2017-10-15 11:50 | ED.PDOC ---
General ED Provider: Dr. CARINA DOW-ER Chief Complaint: Alcohol/Substance Withdrawal Stated Complaint: i need some benzos to help me sleep and get through withdrawal Time Seen by Physician: 11:35 Mode of Arrival: Walk-In Information Source: Patient Exam Limitations: No limitations Primary Care Provider: SYED JOHNS Nursing and Triage Documentation Reviewed and Agree: Yes Reviewed sepsis parameters & appropriate labs ordered?: Yes System Inflammatory Response Syndrome: Not Applicable Sepsis Protocol: For patient's 13 years and over: Temp is 96.8 and below OR 101 and greater Pulse >90 BPM Resp >20/minute Acutely Altered Mental Status Are patient's symptoms suggestive of a new infection, such as: -Pneumonia -Skin, Soft Tissue -Endocarditis -UTI -Bone, Joint Infection -Implantable Device -Acute Abdominal Infection -Wound Infection -Meningitis -Blood Stream Catheter Infection -Unknown Psychological Complaint Exam - Psychiatric Complaint/Exam Patient Complains Of: Present: Other (anxiety) Onset/Duration: today Symptoms Are: Still present Timing: Constant Episodes Lasting: Minutes Initial Severity: Mild Current Severity: Mild Character: Present: Anxious. Absent: Manic, Depressed, Fearful Aggravating: Reports: Medication noncompliance Associated Signs And Symptoms: Reports: Sleep disturbance. Denies: Hostile, Confused, Hallucinating, Paranoid behavior, Appetite change Completed Suicide Risk Factors: None Patient In Custody Of Police: No Social Withdrawal Present: No Social Isolation Present: No Prior Suicide Attempt: No Injury From Prior Suicide Attempt: No Related Surgical History: Reports: None Patient Uncooperative For Exam: No Mood: Present: Anxious. Absent: Depressed, Angry, Guarded, Paranoid, Hallucinating, Manic, Agitated Appearance: Present: Clean Thought Process: Present: Logical Insight: Present: Good Memory: Intact Judgement: Normal Danger To Others: No Differential Diagnoses: Other Review of Systems - Review Of Systems Constitutional: Reports: No symptoms Eyes: Reports: No symptoms Ears, Nose, Mouth, Throat: Reports: No symptoms Respiratory: Reports: No symptoms Cardiac: Reports: No symptoms GI: Reports: No symptoms : Reports: No symptoms Musculoskeletal: Reports: No symptoms Skin: Reports: No symptoms Neurological: Reports: Anxiety Endocrine: Reports: No symptoms Hematologic/Lymphatic: Reports: No symptoms All Other Systems: Reviewed and Negative Past Medical History - Past Medical History Previously Healthy: No Endocrine: Reports: None Cardiovascular: 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), Hypertension, CHF Respiratory: Reports: None Hematological: Reports: None Gastrointestinal: Reports: None Genitourinary: Reports: None Neuro/Psych: Reports: Anxiety, Other (Optic nerve Atrophy of left eye) Musculoskeletal: Reports: None Cancer: Reports: None Other Pertinent Past Medical History: Narcotic addiction: on naloxone and librium, states: Give him no narcotics - Surgical History General Surgical History: Reports: Stent (PT HAS A HX OF 2 HEART CATHS AND ONE STENT PLACED), Orthopedic (Fracture of right knee) - Family History Family History: Reports: None, Heart (PGF) - Social History Smoking Status: Current some day smoker, Light tobacco smoker, Chews tobacco, Dips snuff Hx Substance Use: No (Has dependence in past) Alcohol Screening: None - Immunizations Influenza Vaccine within 12 Months: No Pneumococcal Vaccine up to Date: No Physical Exam - Physical Exam Appearance: Well-appearing, No pain distress, Well-nourished Eyes: JAYLYN, EOMI, Conjunctiva clear ENT: Ears normal Neck: Supple Respiratory: Airway patent, Breath sounds clear, Breath sounds equal, Respirations nonlabored Cardiovascular: RRR, Pulses normal, No rub, No murmur GI/: Soft, Nontender, No masses, Bowel sounds normal, No Organomegaly Musculoskeletal: Normal strength Skin: Warm Neurological: Alert, Oriented Psychiatric: Affect appropriate, Mood appropriate, Anxious Critical Care Note - Critical Care Note Total Time (mins): 0 Course - Course Vital Signs: Temp Pulse Resp BP Pulse Ox 10/15/17 11:31 97.3 F L 101 H 20 164/88 H 96 Departure - Departure Time of Disposition: 11:51 Disposition: HOME SELF-CARE Discharge Problem: Anxiety Instructions: Generalized Anxiety Disorder (ED) Condition: Good Pt referred to PMD for follow-up: Yes IPMP verified?: No Additional Instructions: ativan 1mg tid prn #4--f/u wtih pcp Allergies/Adverse Reactions: Allergies Penicillins Adverse Reaction (Verified 10/15/17 11:38) venom-wasp [Wasp Venom] Adverse Reaction (Verified 10/15/17 11:38) Home Medications: Ambulatory Orders 1 [No Reported Medications] 10/15/17 Disposition Discussed With: Patient
== END 2017-10-15 11:59 | disposition home or self-care (01) ==
LOC: ED 11:30
DX: F41.9 Anxiety disorder, unspecified (principal); F17.210 Nicotine dependence, cigarettes, uncomplicated
CPT/HCPCS: 99282

== ENCOUNTER 2017-10-17 13:44 | Emergency (ER) ==
[2017-10-17 13:49] VITALS: BP 148/104; TEMP 98.4; BMI 31.6
--- NOTE | 2017-10-17 15:22 | ED.PDOC ---
General ED Provider: Dr. CARINA RAMIREZ Chief Complaint: Behavioral Complaint Stated Complaint: Symptoms from suboxone withdrawl.Has been taking from Dr Bashir for 1 yr in order to get off Percocett. Problems with custody baugh to get his child and felt he needed to get off the meds/Stopped Suboxone and clonazepam cold turkey last week. Came to ER Monday due to extreme restlessness and withdrawl symptoms.Was treated and given Lorazepam Time Seen by Physician: 14:50 Mode of Arrival: Walk-In Information Source: Patient Exam Limitations: No limitations Primary Care Provider: SYED JOHNS Referred to ED by: PCP, Other (Urologist) Seen Within Last 72 Hours for Same Complaint By: ED Nursing and Triage Documentation Reviewed and Agree: Yes Reviewed sepsis parameters & appropriate labs ordered?: Yes System Inflammatory Response Syndrome: Not Applicable Sepsis Protocol: For patient's 13 years and over: Temp is 96.8 and below OR 101 and greater Pulse >90 BPM Resp >20/minute Acutely Altered Mental Status Are patient's symptoms suggestive of a new infection, such as: -Pneumonia -Skin, Soft Tissue -Endocarditis -UTI -Bone, Joint Infection -Implantable Device -Acute Abdominal Infection -Wound Infection -Meningitis -Blood Stream Catheter Infection -Unknown System Inflammatory Response Syndrome: Not Applicable Review of Systems - Review Of Systems Constitutional: Reports: Weakness, Loss of appetite Eyes: Reports: No symptoms Ears, Nose, Mouth, Throat: Reports: No symptoms Respiratory: Reports: No symptoms Cardiac: Reports: No symptoms GI: Reports: No symptoms : Reports: No symptoms Musculoskeletal: Reports: Back pain, Muscle pain, Muscle stiffness, Neck pain Neurological: Reports: Anxiety, Other (withdrawl symptoms) Endocrine: Reports: No symptoms Hematologic/Lymphatic: Reports: No symptoms All Other Systems: Reviewed and Negative Past Medical History - Past Medical History Previously Healthy: No Endocrine: Reports: None Cardiovascular: 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), Hypertension, CHF Respiratory: Reports: None Hematological: Reports: None Gastrointestinal: Reports: None Genitourinary: Reports: None Neuro/Psych: Reports: Anxiety, Other (Optic nerve Atrophy of left eye) Musculoskeletal: Reports: None Cancer: Reports: None Other Pertinent Past Medical History: Narcotic addiction: on naloxone and librium, states: Give him no narcotics - Surgical History General Surgical History: Reports: Stent (PT HAS A HX OF 2 HEART CATHS AND ONE STENT PLACED), Orthopedic (Fracture of right knee) - Family History Family History: Reports: None, Heart (PGF) - Social History Smoking Status: Current some day smoker, Light tobacco smoker, Chews tobacco, Dips snuff Hx Substance Use: No (Has dependence in past) Alcohol Screening: None - Immunizations Influenza Vaccine within 12 Months: No Pneumococcal Vaccine up to Date: No Physical Exam - Physical Exam Appearance: Well-appearing, No pain distress, Well-nourished, Obese Ill-appearing: None Pain Distress: None Eyes: JAYLYN, EOMI, Conjunctiva clear ENT: Ears normal, Nose normal, Oropharynx normal Respiratory: Airway patent, Breath sounds clear, Breath sounds equal, Respirations nonlabored Cardiovascular: RRR, Pulses normal, No rub, No murmur GI/: Soft, Nontender, No masses, Bowel sounds normal, No Organomegaly Musculoskeletal: Normal strength, ROM intact, No edema, No calf tenderness Skin: Warm, Dry, Normal color Neurological: Sensation intact, Motor intact, Reflexes intact, Cranial nerves intact, Alert, Oriented Psychiatric: Affect appropriate (Flattened afflect), Anxious Critical Care Note - Critical Care Note Total Time (mins): 30 Course - Course Orders, Labs, Meds: Orders Category Date Time Status Lorazepam [Ativan] MEDS 10/17/17 15:23 Discontinued 1 mg PO ONCE STA Medications Discontinued Medications Generic Name Dose Route Start Last Admin Trade Name Freq PRN Reason Stop Dose Admin Lorazepam 1 mg 10/17/17 15:23 10/17/17 15:27 Ativan PO 10/17/17 15:24 1 mg ONCE STA Administration Vital Signs: Temp Pulse Resp BP Pulse Ox 10/17/17 13:44 98.4 F 112 H 20 148/104 H 98 Departure - Departure Time of Disposition: 16:20 Disposition: HOME SELF-CARE Discharge Problem: Withdrawal from opioids, Anxiety Instructions: Mood Disorders (ED), Anxiety (ED) Condition: Good Pt referred to PMD for follow-up: Yes (PCP 1 WEEK) IPMP verified?: No Prescriptions: Lorazepam [Ativan] 1 mg PO BID PRN #8 tablet PRN Reason: RELIEF OF ANXIETY Allergies/Adverse Reactions: Allergies Penicillins Adverse Reaction (Verified 10/17/17 13:51) venom-wasp [Wasp Venom] Adverse Reaction (Verified 10/17/17 13:51) Home Medications: Ambulatory Orders Lorazepam [Ativan] 1 mg PO BID PRN #8 tablet 10/17/17 Disposition Discussed With: Patient (Encouraged patient to see his PCP this week ) Additional Information: Treatment; Lorazepam 1 mg po her. Rx for home. Cautioned patient concerning need to wean down and remain off benzodiaz.
[2017-10-17] MEDS ORDERED: ATIVAN PO STA (15:23)
== END 2017-10-17 16:35 | disposition home or self-care (01) ==
LOC: ED 13:44
DX: F11.23 Opioid dependence with withdrawal (principal); F41.9 Anxiety disorder, unspecified
CPT/HCPCS: 99283

== ENCOUNTER 2017-10-21 11:26 | Emergency (ER) ==
[2017-10-21 11:31] VITALS: BP 169/109; TEMP 97.8; BMI 32.5
[2017-10-21] MEDS ORDERED: ZOFRAN TAB PO STA (12:51)
[2017-10-21] MEDS ORDERED: CATAPRES PO STA ×2 (12:51→15:56)
[2017-10-21] MEDS ORDERED: VISTARIL INJ IM STA (12:52)
[2017-10-21] MEDS ORDERED: TORADOL IVP STA (13:14)
--- NOTE | 2017-10-21 13:17 | ED.PDOC ---
General ED Provider: Dr. CARINA RAMIREZ Chief Complaint: Chest Pain Stated Complaint: Going through withdrawl from suboxone. Was in ER Several days ago with similar symptoms. Stopped all meds including Suboxone several days ago -social issue with attempting to become non dependent on any meds -attempting to prove to the courts he's capapable of being responsible and can provide care to his child-currently child apparently in foster care due to drug related issues with his late . Time Seen by Physician: 11:40 Mode of Arrival: Wheelchair Information Source: Patient, Family Exam Limitations: No limitations Primary Care Provider: SYED JOHNS Seen Within Last 72 Hours for Same Complaint By: ED Nursing and Triage Documentation Reviewed and Agree: Yes Reviewed sepsis parameters & appropriate labs ordered?: Yes System Inflammatory Response Syndrome: Not Applicable Sepsis Protocol: For patient's 13 years and over: Temp is 96.8 and below OR 101 and greater Pulse >90 BPM Resp >20/minute Acutely Altered Mental Status Are patient's symptoms suggestive of a new infection, such as: -Pneumonia -Skin, Soft Tissue -Endocarditis -UTI -Bone, Joint Infection -Implantable Device -Acute Abdominal Infection -Wound Infection -Meningitis -Blood Stream Catheter Infection -Unknown System Inflammatory Response Syndrome: Not Applicable Psychological Complaint Exam - Substance Abuse/Use Complaint/Exam Patient Complains Of Substance Withdrawal Of: Other (Suboxone) Timing: Daily Recent Cessation: YES Initial Severity: Severe Current Severity: Moderate Character: Present: Manic, Anxious Aggravating: Reports: Recent stress, Therapy non-compliance Alleviating: Reports: Medication (anxiolytics) Associated Signs And Symptoms: Reports: Paranoid behavior, Sleep disturbance, Appetite change, Social withdrawal, Palpitations, Short of air, Chest pain, Diaphoretic, Tremulous Related History: Reports: Prior psych counseling. Denies: Suicidal thoughts, Suicidal plan, Homicidal thoughts Possible Multi Drug Ingestion: No Completed Suicide Risk Factors: Male, Age > 60, Patient Accompanied By: Family (His Mother) Prior Suicide Attempt: No Patient Uncooperative For Exam: No Mood: Present: Anxious Appearance: Present: Clean Thought Process: Present: Logical Review of Systems - Review Of Systems Constitutional: Reports: No symptoms, Sweats, Loss of appetite Eyes: Reports: No symptoms Ears, Nose, Mouth, Throat: Reports: No symptoms Respiratory: Reports: No symptoms Cardiac: Reports: No symptoms GI: Reports: No symptoms : Reports: No symptoms Musculoskeletal: Reports: No symptoms Skin: Reports: No symptoms Neurological: Reports: Anxiety Endocrine: Reports: No symptoms Hematologic/Lymphatic: Reports: No symptoms All Other Systems: Reviewed and Negative Past Medical History - Past Medical History Previously Healthy: No Endocrine: Reports: None Cardiovascular: 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), Hypertension, CHF Respiratory: Reports: None Hematological: Reports: None Gastrointestinal: Reports: None Genitourinary: Reports: None Neuro/Psych: Reports: Anxiety, Other (Optic nerve Atrophy of left eye) Musculoskeletal: Reports: None Cancer: Reports: None Other Pertinent Past Medical History: Narcotic addiction: on naloxone and librium, states: Give him no narcotics - Surgical History General Surgical History: Reports: Stent (PT HAS A HX OF 2 HEART CATHS AND ONE STENT PLACED), Orthopedic (Fracture of right knee) - Family History Family History: Reports: None, Heart (PGF) - Social History Smoking Status: Current some day smoker, Light tobacco smoker, Chews tobacco, Dips snuff Hx Substance Use: No (Has dependence in past) Alcohol Screening: None - Immunizations Tetanus Shot up to Date: Yes Influenza Vaccine within 12 Months: No Pneumococcal Vaccine up to Date: No Physical Exam - Physical Exam Appearance: Well-appearing, No pain distress, Well-nourished Eyes: JAYLYN, EOMI, Conjunctiva clear ENT: Ears normal, Nose normal, Oropharynx normal Respiratory: Airway patent, Breath sounds clear, Breath sounds equal, Respirations nonlabored Cardiovascular: RRR, Pulses normal, No rub, No murmur GI/: Soft, Nontender, No masses, Bowel sounds normal, No Organomegaly Musculoskeletal: Normal strength, ROM intact, No edema, No calf tenderness Skin: Warm, Dry, Normal color Neurological: Sensation intact, Motor intact, Reflexes intact, Cranial nerves intact, Alert, Oriented Psychiatric: Affect appropriate, Mood appropriate, Anxious Critical Care Note - Critical Care Note Total Time (mins): 60 (Monitoring VS and NeuroPsych status) Course - Course Hematology/Chemistry: 10/21/17 13:08 10/21/17 13:08 Orders, Labs, Meds: Lab Review 10/21/17 10/21/17 10/21/17 13:08 13:08 13:08 WBC 7.74 RBC 5.09 Hgb 15.5 Hct 43.4 MCV 85.3 MCH 30.5 MCHC 35.7 H RDW Coeff of Prasad 12.6 Plt Count 218 Immature Gran % (Auto) 0.4 Neut % (Auto) 66.2 Lymph % (Auto) 25.1 [place] % (Auto) 5.4 Eos % (Auto) 2.1 Baso % (Auto) 0.8 Immature Gran # (Auto) 0.0 Neut # (Auto) 5.1 Lymph # (Auto) 1.9 [place] # (Auto) 0.4 Eos # (Auto) 0.2 Baso # (Auto) 0.1 Sodium 142 Potassium 3.8 Chloride 109 H Carbon Dioxide 23 Anion Gap 13.8 BUN 8 Creatinine 0.69 Estimated GFR (MDRD) 127.00 BUN/Creatinine Ratio 11.59 Glucose 97 Lactic Acid 14.4 Calcium 9.3 Total Bilirubin 0.4 AST 35 ALT 64 Alkaline Phosphatase 61 Total Protein 7.1 Albumin 3.7 Globulin 3.4 Albumin/Globulin Ratio 1.09 Urine Color Urine Clarity Urine pH Ur Specific [place] Urine Protein Urine Glucose (UA) Urine Ketones Urine Blood Urine Nitrite Urine Bilirubin Urine Urobilinogen Ur Leukocyte Esterase Urine Opiates Screen Ur Oxycodone Screen Urine Methadone Screen Ur Propoxyphene Screen Ur Barbiturates Screen U Tricyclic Antidepress Ur Phencyclidine Scrn Ur Amphetamine Screen U Methamphetamines Scrn U Benzodiazepines Scrn Urine Cocaine Screen U Cannabinoids Screen 10/21/17 10/21/17 13:08 13:08 WBC RBC Hgb Hct MCV MCH MCHC RDW Coeff of Prasad Plt Count Immature Gran % (Auto) Neut % (Auto) Lymph % (Auto) [place] % (Auto) Eos % (Auto) Baso % (Auto) Immature Gran # (Auto) Neut # (Auto) Lymph # (Auto) [place] # (Auto) Eos # (Auto) Baso # (Auto) Sodium Potassium Chloride Carbon Dioxide Anion Gap BUN Creatinine Estimated GFR (MDRD) BUN/Creatinine Ratio Glucose Lactic Acid Calcium Total Bilirubin AST ALT Alkaline Phosphatase Total Protein Albumin Globulin Albumin/Globulin Ratio Urine Color Yellow Urine Clarity Clear Urine pH 7.0 Ur Specific [place] 1.010 Urine Protein Negative Urine Glucose (UA) Negative Urine Ketones Negative Urine Blood Negative Urine Nitrite Negative Urine Bilirubin Negative Urine Urobilinogen 0.2 Ur Leukocyte Esterase Negative Urine Opiates Screen Negative Ur Oxycodone Screen Negative Urine Methadone Screen Negative Ur Propoxyphene Screen Negative Ur Barbiturates Screen Negative U Tricyclic Antidepress Negative Ur Phencyclidine Scrn Negative Ur Amphetamine Screen Negative U Methamphetamines Scrn Negative U Benzodiazepines Scrn Negative Urine Cocaine Screen Negative U Cannabinoids Screen Negative Orders Category Date Time Status EKG-(ED ONLY) Stat CARDIO 10/21/17 12:15 Completed IV [ED IV/MEDIPORT/POWERPORT] .ONCE EMERGENCY 10/21/17 12:53 Active BLOOD CULTURE (ED ONLY) Stat LAB 10/21/17 13:08 Completed CBC W/ AUTO DIFF Stat LAB 10/21/17 13:08 Completed CMP [COMPREHENSIVE METABOLIC PANEL] Stat LAB 10/21/17 13:08 Completed LACTIC ACID Stat LAB 10/21/17 13:08 Completed UA [URINALYSIS C & S IF INDICATED] Stat LAB 10/21/17 13:08 Completed URINE DRUG SCREEN (RAPID FOR ED) [DRUG SCREEN, URINE, LAB 10/21/17 13:08 Completed RAPID] Stat 0.9 % Sodium Chloride [Saline Flush] MEDS 10/21/17 12:52 Discontinued 1 syr IVF PRN PRN Chlordiazepoxide HCl [Librium] MEDS 10/21/17 15:55 Discontinued 50 mg PO ONCE STA Clonidine HCl [Catapres] MEDS 10/21/17 12:51 Discontinued 0.1 mg PO ONCE STA Clonidine HCl [Catapres] MEDS 10/21/17 15:56 Discontinued 0.1 mg PO ONCE STA Hydroxyzine HCl [Vistaril Inj] MEDS 10/21/17 12:52 Discontinued 50 mg IM ONCE STA Ketorolac Tromethamine [Toradol] MEDS 10/21/17 13:14 Discontinued 30 mg IVP ONCE STA Ondansetron HCl [Zofran Tab] MEDS 10/21/17 12:51 Discontinued 4 mg PO ONCE STA Orphenadrine Citrate [Norflex] MEDS 10/21/17 16:34 Discontinued 60 mg IM ONCE STA CHEST, 1V AP ONLY Stat RADS 10/21/17 12:52 Completed Medications Discontinued Medications Generic Name Dose Route Start Last Admin Trade Name Freq PRN Reason Stop Dose Admin Chlordiazepoxide HCl 50 mg 10/21/17 15:55 10/21/17 16:01 Librium PO 10/21/17 15:56 50 mg ONCE STA Administration Clonidine 0.1 mg 10/21/17 12:51 10/21/17 13:10 Catapres PO 10/21/17 12:52 0.1 mg ONCE STA Administration Clonidine 0.1 mg 10/21/17 15:56 10/21/17 16:02 Catapres PO 10/21/17 15:57 0.1 mg ONCE STA Administration Hydroxyzine HCl 50 mg 10/21/17 12:52 10/21/17 13:10 Vistaril Inj IM 10/21/17 12:53 50 mg ONCE STA Administration Ketorolac Tromethamine 30 mg 10/21/17 13:14 10/21/17 13:22 Toradol IVP 10/21/17 13:15 30 mg ONCE STA Administration Ondansetron HCl 4 mg 10/21/17 12:51 10/21/17 13:10 Zofran Tab PO 10/21/17 12:52 4 mg ONCE STA Administration Orphenadrine Citrate 60 mg 10/21/17 16:34 10/21/17 16:42 Norflex IM 10/21/17 16:35 60 mg ONCE STA Administration Sodium Chloride 1 syr 10/21/17 12:52 Saline Flush IVF PRN PRN To flush IV Vital Signs: Temp Pulse Resp BP Pulse Ox 10/21/17 11:27 97.8 F 89 20 169/109 H 99 Departure - Departure Time of Disposition: 17:10 Disposition: HOME SELF-CARE Discharge Problem: Drug withdrawal headache, Hypertension, Opiate withdrawal Instructions: Hypertension (ED), Anxiety (ED) Condition: Fair Pt referred to PMD for follow-up: Yes (Dr Johns next week) IPMP verified?: No Additional Instructions: Take meds as directed See Dr Johns next week Prescriptions: Clonidine HCl 0.1 mg PO Q12HR #60 tablet Chlordiazepoxide HCl [Librium] 25 mg PO TID #15 capsule Allergies/Adverse Reactions: Allergies Penicillins Adverse Reaction (Verified 10/17/17 13:51) venom-wasp [Wasp Venom] Adverse Reaction (Verified 10/17/17 13:51) Home Medications: Ambulatory Orders Chlordiazepoxide HCl [Librium] 25 mg PO TID #15 capsule 10/21/17 Clonidine HCl 0.1 mg PO Q12HR #60 tablet 10/21/17 Disposition Discussed With: Patient, Family Cardiovascular Complaint Exam - Hypertension Complaint/Exam Symptoms Are: Still present Timing: Constant Associated Signs and Symptoms: Reports: Chest pain, Anxiety Related History: Reports: Similar episode Related Surgical History: Reports: None Cardiac Risk Factors: Reports: Hypertension Additional Information: Discussed case with Dr Johns making him aware of patients status. Agrees with treatment and will see patient this coming week. Advised pt to call office Monday for apt
--- NOTE | 2017-10-21 13:52 | DI ---
EXAM: Single view of the chest. History: Elevated blood pressure Comparison: Chest radiograph 02/13/2017 Findings: Heart size is normal. No focal consolidation. No appreciable pleural fluid and no pneumo thorax. Calcified granulomas again seen within the thorax. No acute osseous abnormalities. Impression: No acute cardiopulmonary process
[2017-10-21] MEDS ORDERED: LIBRIUM PO STA (15:55)
[2017-10-21] MEDS ORDERED: NORFLEX IM STA (16:34)
== END 2017-10-21 17:20 | disposition home or self-care (01) ==
LOC: ED 11:26
DX: F11.23 Opioid dependence with withdrawal (principal); G44.40 Drug-induced headache, not elsewhere classified, not intractable; I10 Essential (primary) hypertension; F41.9 Anxiety disorder, unspecified; R07.9 Chest pain, unspecified; R06.02 Shortness of breath; I25.10 Atherosclerotic heart disease of native coronary artery without angina pectoris; Z95.5 Presence of coronary angioplasty implant and graft; Z72.0 Tobacco use
CPT/HCPCS: 36415; 80053; 80306; 81001; 83605; 85025; 87040; 93005; 93010; 96372; 96374; 96375; 99284

== ENCOUNTER 2017-12-23 12:30 | Outpatient (CLI) | END 2017-12-23 12:49 | disposition short-term general hospital (02) | LOC: AMBL 12:30 | PROVIDERS: ATTEND Internal Medicine Geriatric Medicine | DX: M54.5 Low back pain (principal); R31.9 Hematuria, unspecified; R33.9 Retention of urine, unspecified ==

== ENCOUNTER 2018-01-27 17:28 | Emergency (ER) | payer OTHER ==
[2018-01-27 17:32] VITALS: BP 129/98; TEMP 98; BMI 28.3
--- NOTE | 2018-01-27 17:43 | ED.PDOC ---
General ED Provider: Dr. CARINA RAMIREZ Chief Complaint: Headache Stated Complaint: Brought in to ED by [facility] under arrest and in route to shelter patient started with multiple complaints, headache, eye pain stating he was exposed to U[place] his father brought home from [facility]. Stated he had been taking littly blue pills. Confused and appearing alert and was OX3 Time Seen by Physician: 17:35 Mode of Arrival: Walk-In Information Source: Patient Exam Limitations: No limitations, Clinical condition Primary Care Provider: SYED JOHNS Nursing and Triage Documentation Reviewed and Agree: Yes Does patient meet sepsis criteria?: No If yes, has appropriate treatment been initiated?: No System Inflammatory Response Syndrome: Not Applicable Sepsis Protocol: For patient's 13 years and over: Temp is 96.8 and below OR 101 and greater Pulse >90 BPM Resp >20/minute Acutely Altered Mental Status Are patient's symptoms suggestive of a new infection, such as: -Pneumonia -Skin, Soft Tissue -Endocarditis -UTI -Bone, Joint Infection -Implantable Device -Acute Abdominal Infection -Wound Infection -Meningitis -Blood Stream Catheter Infection -Unknown Psychological Complaint Exam - Substance Abuse/Use Complaint/Exam Patient Complains Of Substance Abuse Of: Alcohol, Amphetamines, Benzodiazapines Abuse Began: for years Timing: Intermittent Initial Severity: Moderate Current Severity: Moderate Character: Present: Anxious Aggravating: Reports: Recent stress Associated Signs And Symptoms: Reports: Confused, Paranoid behavior. Denies: Social withdrawal, Delirium Tremens, Tremulous, Agitated, Nausea, Vomiting, Diarrhea Related History: Reports: Prior abuse counseling. Denies: Suicidal thoughts, Suicidal plan, Suicidal gestures, Homicidal thoughts, Homicidal plan, Homicidal gestures Possible Multi Drug Ingestion: Yes Patient Uncooperative For Exam: No Review of Systems - Review Of Systems Constitutional: Reports: No symptoms Eyes: Reports: No symptoms Ears, Nose, Mouth, Throat: Reports: No symptoms Respiratory: Reports: No symptoms Cardiac: Reports: No symptoms GI: Reports: No symptoms : Reports: No symptoms Musculoskeletal: Reports: No symptoms Skin: Reports: No symptoms Neurological: Reports: No symptoms Endocrine: Reports: No symptoms Hematologic/Lymphatic: Reports: No symptoms All Other Systems: Reviewed and Negative Past Medical History - Past Medical History Previously Healthy: No Endocrine: Reports: None Cardiovascular: 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), Hypertension, CHF Respiratory: Reports: None Hematological: Reports: None Gastrointestinal: Reports: None Genitourinary: Reports: None Neuro/Psych: Reports: Anxiety, Other (Optic nerve Atrophy of left eye) Musculoskeletal: Reports: None Cancer: Reports: None Other Pertinent Past Medical History: Narcotic addiction: on naloxone and librium, states: Give him no narcotics - Surgical History General Surgical History: Reports: Stent (PT HAS A HX OF 2 HEART CATHS AND ONE STENT PLACED), Orthopedic (Fracture of right knee) - Family History Family History: Reports: None, Heart (PGF) - Social History Smoking Status: Current some day smoker, Light tobacco smoker, Chews tobacco, Dips snuff Hx Substance Use: No (Has dependence in past) Alcohol Screening: None - Immunizations Influenza Vaccine within 12 Months: No Pneumococcal Vaccine up to Date: No Physical Exam - Physical Exam Appearance: Well-appearing Ill-appearing: None Pain Distress: None Eyes: JAYLYN, EOMI, Conjunctiva clear ENT: Ears normal, Nose normal, Oropharynx normal Respiratory: Airway patent, Breath sounds clear, Breath sounds equal, Respirations nonlabored Cardiovascular: RRR, Pulses normal, No rub, No murmur GI/: Soft, Nontender, No masses, Bowel sounds normal, No Organomegaly Musculoskeletal: Normal strength, ROM intact, No edema, No calf tenderness Skin: Warm, Dry, Normal color Neurological: Sensation intact, Motor intact, Reflexes intact, Cranial nerves intact, Alert, Oriented Psychiatric: Anxious, Depressed (flat affect and sierra) Re-Evaluation - Re-Evaluation Time of Re-Evaluation: 19:15 Status: Improved Vital Signs Stable: Yes Appearance: NAD Lungs: Clear Skin: Warm and Dry Neuro: Alert and Oriented X3 CV: RRR Additional Comments: Explained results of lab and will clear [facility] Critical Care Note - Critical Care Note Total Time (mins): 60 Course - Course Hematology/Chemistry: 01/27/18 17:40 01/27/18 17:40 Orders, Labs, Meds: Lab Review 01/27/18 01/27/18 01/27/18 17:40 17:40 17:55 WBC 6.43 RBC 5.34 Hgb 15.7 Hct 42.5 MCV 79.6 L MCH 29.4 MCHC 36.9 H RDW Coeff of Prasad 13.1 Plt Count 246 Immature Gran % (Auto) 0.3 Neut % (Auto) 61.1 Lymph % (Auto) 28.3 [place] % (Auto) 7.2 Eos % (Auto) 2.3 Baso % (Auto) 0.8 Immature Gran # (Auto) 0.0 Neut # (Auto) 3.9 Lymph # (Auto) 1.8 [place] # (Auto) 0.5 Eos # (Auto) 0.2 Baso # (Auto) 0.1 Sodium 138 Potassium 2.9 L Chloride 105 Carbon Dioxide 20 L Anion Gap 15.9 BUN 14 Creatinine 0.84 Estimated GFR (MDRD) 101.00 BUN/Creatinine Ratio 16.66 Glucose 101 H Calcium 9.5 Total Bilirubin 1.0 AST 22 ALT 35 Alkaline Phosphatase 55 Total Protein 7.5 Albumin 4.1 Globulin 3.4 Albumin/Globulin Ratio 1.21 Urine Color Urine Clarity Urine pH Ur Specific [place] Urine Protein Urine Glucose (UA) Urine Ketones Urine Blood Urine Nitrite Urine Bilirubin Urine Urobilinogen Ur Leukocyte Esterase Urine Microscopic RBC Urine Microscopic WBC Ur Squamous Epith Cells Calcium Oxalate Crystal Urine Bacteria Urine Mucus Urine Sperm Salicylate Level mg/dL < 5.0 Urine Opiates Screen Positive Ur Oxycodone Screen Negative Urine Methadone Screen Negative Ur Propoxyphene Screen Negative Acetaminophen < 3 L Ur Barbiturates Screen Negative U Tricyclic Antidepress Negative Ur Phencyclidine Scrn Negative Ur Amphetamine Screen Positive U Methamphetamines Scrn Positive U Benzodiazepines Scrn Positive Urine Cocaine Screen Negative U Cannabinoids Screen Negative Plasma/Serum Alcohol < 10.0 01/27/18 17:55 WBC RBC Hgb Hct MCV MCH MCHC RDW Coeff of Prasad Plt Count Immature Gran % (Auto) Neut % (Auto) Lymph % (Auto) [place] % (Auto) Eos % (Auto) Baso % (Auto) Immature Gran # (Auto) Neut # (Auto) Lymph # (Auto) [place] # (Auto) Eos # (Auto) Baso # (Auto) Sodium Potassium Chloride Carbon Dioxide Anion Gap BUN Creatinine Estimated GFR (MDRD) BUN/Creatinine Ratio Glucose Calcium Total Bilirubin AST ALT Alkaline Phosphatase Total Protein Albumin Globulin Albumin/Globulin Ratio Urine Color Yellow Urine Clarity Clear Urine pH 5.5 Ur Specific [place] >=1.030 Urine Protein 1+ Urine Glucose (UA) Negative Urine Ketones 1+ Urine Blood Negative Urine Nitrite Negative Urine Bilirubin 2+ Urine Urobilinogen 1.0 Ur Leukocyte Esterase Negative Urine Microscopic RBC 2-5 Urine Microscopic WBC 5-10 Ur Squamous Epith Cells 0-2 Calcium Oxalate Crystal 1+ Urine Bacteria 1+ Urine Mucus 2+ Urine Sperm 1+ Salicylate Level mg/dL Urine Opiates Screen Ur Oxycodone Screen Urine Methadone Screen Ur Propoxyphene Screen Acetaminophen Ur Barbiturates Screen U Tricyclic Antidepress Ur Phencyclidine Scrn Ur Amphetamine Screen U Methamphetamines Scrn U Benzodiazepines Scrn Urine Cocaine Screen U Cannabinoids Screen Plasma/Serum Alcohol Orders Category Date Time Status EKG-(ED ONLY) Stat CARDIO 01/27/18 17:41 Completed ED [employer] APPLIED ONCE EMERGENCY 01/27/18 17:41 Active ACETAMINOPHEN Stat LAB 01/27/18 17:40 Completed BLOOD ALCOHOL Stat LAB 01/27/18 17:40 Completed CBC W/ AUTO DIFF Stat LAB 01/27/18 17:40 Completed COMPREHENSIVE METABOLIC PANEL Stat LAB 01/27/18 17:40 Completed DRUG SCREEN, URINE, RAPID Stat LAB 01/27/18 17:55 Completed SALICYLATE Stat LAB 01/27/18 17:40 Completed UA [URINALYSIS C & S IF INDICATED] Stat LAB 01/27/18 17:55 Completed URINE CULTURE Stat LAB 01/27/18 17:55 Received Potassium Chloride [K-Dur] MEDS 01/27/18 18:49 Discontinued 20 meq PO ONCE STA Medications Discontinued Medications Generic Name Dose Route Start Last Admin Trade Name Luis Alfredo PRN Reason Stop Dose Admin Potassium Chloride 20 meq 01/27/18 18:49 01/27/18 18:56 K-Dur PO 01/27/18 18:50 20 meq ONCE STA Administration Vital Signs: Temp Pulse Resp BP Pulse Ox 01/27/18 17:29 98.0 F 108 H 20 129/98 H 98 Departure - Departure Time of Disposition: 19:20 (Released to [facility]) Disposition: HOME SELF-CARE Discharge Problem: Methamphetamine abuse, Hypokalemia, Cephalgia Discharge Problem: (Ruled Out): Polysubstance (excluding opioids) dependence Instructions: Methamphetamine Abuse (ED), Polysubstance Abuse (ED), Potassium Chloride (By mouth), Hypokalemia (ED) Condition: Fair Pt referred to PMD for follow-up: Yes (PCP in 3 -4 days) IPMP verified?: No Prescriptions: Potassium Chloride [Klor-Con 10] 20 meq PO DAILY #10 tablet.er Allergies/Adverse Reactions: Allergies Penicillins Adverse Reaction (Verified 01/27/18 17:34) venom-wasp [Wasp Venom] Adverse Reaction (Verified 01/27/18 17:34) Home Medications: Ambulatory Orders Chlordiazepoxide HCl [Librium] 25 mg PO TID #15 capsule 10/21/17 Potassium Chloride [Klor-Con 10] 20 meq PO DAILY #10 tablet.er 01/27/18 Disposition Discussed With: Patient, Other ([place])
[2018-01-27] MEDS ORDERED: K-DUR PO STA (18:49)
[2018-01-27] MEDS ORDERED: TYLENOL PO STA (19:18)
[2018-01-27] MEDS ORDERED: MOTRIN PO STA (19:26)
[2018-01-27] MEDS ORDERED: MOTRIN ONE (19:27)
== END 2018-01-27 20:12 | disposition home or self-care (01) ==
LOC: ED 17:28
DX: F15.10 Other stimulant abuse, uncomplicated (principal); E87.6 Hypokalemia; R51 Headache; I25.10 Atherosclerotic heart disease of native coronary artery without angina pectoris; I10 Essential (primary) hypertension; F17.210 Nicotine dependence, cigarettes, uncomplicated
CPT/HCPCS: 36415; 80053; 80306; 80307; 81001; 85025; 87086; 93005; 93010; 99283

== ENCOUNTER 2022-09-17 18:46 | Observation (INO) ==
[2022-09-17 18:52] VITALS: BMI 31.7
[2022-09-17] MEDS ORDERED: CLEOCIN 900 MG/50 ML D5W 900 MG/50 ML BAG IV ONE (19:50)
--- NOTE | 2022-09-17 20:01 | ED.PDOC ---
General ED Provider: Dr. CARINA DOW Chief Complaint: Foot Pain/Injury Stated Complaint: tonia had a hx of staph before--my foot and ankle are red and its going up my left leg Time Seen by Provider: 09/17/22 19:58 Mode of Arrival: Walk-In Information Source: Patient Exam Limitations: No limitations Nursing and Triage Documentation Reviewed and Agree: Yes Does patient meet sepsis criteria?: No System Inflammatory Response Syndrome: Not Applicable Sepsis Protocol: For patient's 13 years and over: Temp is 96.8 and below OR 101 and greater Pulse >90 BPM Resp >20/minute Acutely Altered Mental Status Are patient's symptoms suggestive of a new infection, such as: -Pneumonia -Skin, Soft Tissue -Endocarditis -UTI -Bone, Joint Infection -Implantable Device -Acute Abdominal Infection -Wound Infection -Meningitis -Blood Stream Catheter Infection -Unknown Skin Complaint Exam Skin/Soft Tissue Complaint/Exam Onset/Duration: 2 days Symptoms Are: Still present Timing: Constant Initial Severity: Mild Current Severity: Moderate Location: left foot and leg Character: Reports Redness and Swelling Aggravating: Reports None Associated Signs and Symptoms: Reports Tenderness and Red streaks 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 Surgical History: Reports None Recent Exposure to Others w/Similar Symptoms: No Skin Findings: Present Erythema Joint Tenderness Present: No Differential Diagnoses: Cellulitis Review of Systems Review Of Systems Constitutional: Reports No symptoms Eyes: Reports No symptoms Ears, Nose, Mouth, Throat: Reports No symptoms Respiratory: Reports No symptoms Cardiac: Reports No symptoms GI: Reports No symptoms : Reports No symptoms Musculoskeletal: Reports No symptoms Skin: Reports Change in color and Rash Neurological: Reports No symptoms Endocrine: Reports No symptoms Hematologic/Lymphatic: Reports No symptoms All Other Systems: Reviewed and Negative [facility] Medical History ADHD Anger Anxiety CAD (coronary artery disease) Chronic hepatitis C Drug abuse Polysubstance abuse Family History pgf Cardiac disease daughter drug exposure Social History Smoking and tobacco status: Former smoker Surgical History Placement of stent in coronary artery Physical Exam Physical Exam Appearance: Reports Well-appearing Ill-appearing: None Pain Distress: Mild Eyes: Reports JAYLYN, EOMI and Conjunctiva clear ENT: Reports Ears normal, Nose normal and Oropharynx normal Neck: Supple Respiratory: Reports Airway patent, Breath sounds clear and Breath sounds equal Cardiovascular: Reports RRR, Pulses normal, No rub and No murmur GI/: Reports Soft, Nontender, No masses, Bowel sounds normal and No Organomegaly Musculoskeletal: Reports Normal strength, ROM intact, No edema and No calf tenderness Skin: Reports Warm, Dry, Normal color and Other (noted erythema from foot and ankle radiating up the left leg) Neurological: Reports Sensation intact, Motor intact, Reflexes intact, Cranial nerves intact, Alert and Oriented Psychiatric: Reports Affect appropriate and Mood appropriate Interpretation Radiology Interpretation Radiology Interpretation By: Radiologist Radiology Results: Negative Exam Interpreted: CT Scan Critical Care Note Critical Care Note Total Critical Care Time (mins): 0 Course Course Hematology/Chemistry: 09/17/22 20:10 09/17/22 20:10 Orders, Labs, Meds: Lab Review 09/17/22 09/17/22 20:10 20:10 WBC 5.54 RBC 4.55 L Hgb 13.8 L Hct 40.1 L MCV 88.1 MCH 30.3 MCHC 34.4 RDW Coeff of Prasad 11.9 Plt Count 264 Immature Gran % (Auto) 0.2 Neut % (Auto) 51.6 Lymph % (Auto) 32.5 [place] % (Auto) 9.2 Eos % (Auto) 5.6 Baso % (Auto) 0.9 Neut # (Auto) 2.9 Lymph # (Auto) 1.8 [place] # (Auto) 0.5 Eos # (Auto) 0.3 Baso # (Auto) 0.1 Immature Gran # (Auto) 0.0 ESR 12 Sodium 138.6 Potassium 3.33 L Chloride 102.4 Carbon Dioxide 28.5 Anion Gap 11.03 BUN 20.9 H Creatinine 0.67 Estimated GFR (MDRD) 128.00 BUN/Creatinine Ratio 31.19 Glucose 103.1 Uric Acid 5.71 Calcium 9.40 Total Bilirubin 0.78 AST 55.1 ALT 46.6 Alkaline Phosphatase 67.4 Total Protein 7.74 Albumin 4.62 Globulin 3.12 Albumin/Globulin Ratio 1.48 Orders Category Date Time Status ED IV/MEDIPORT/POWERPORT .ONCE EMERGENCY 09/17/22 19:50 Active BLOOD CULTURE (ED ONLY) Stat LAB 09/17/22 20:10 Received CBC W/ AUTO DIFF Stat LAB 09/17/22 20:10 Completed COMPREHENSIVE METABOLIC PANEL Stat LAB 09/17/22 20:10 Completed ESR Stat LAB 09/17/22 20:10 Completed URIC ACID Stat LAB 09/17/22 20:10 Completed 0.9 % Sodium Chloride [Saline Flush] MEDS 09/17/22 19:50 Active 1 syr IVF PRN PRN Clindamycin Phosphate/D5w [Cleocin 900 mg/50 ml D5w] MEDS 09/17/22 19:50 Discontinued 900 mg in [address] ANKLE LEFT WITHOUT CONTRAST Stat RADS 09/17/22 19:[address] FOOT LEFT WITHOUT CONTRAST Stat RADS 09/17/22 19:49 Completed Medications Generic Name Dose Route Start Last Admin Trade Name Freq PRN Reason Stop Dose Admin Sodium Chloride 1 syr 09/17/22 19:50 0.9% Sodium Chloride 10 Ml Disp.Syrin IVF PRN PRN To flush IV Discontinued Medications Generic Name Dose Route Start Last Admin Trade Name Freq PRN Reason Stop Dose Admin Clindamycin Phosphate 900 mg in 50 mls @ 75 mls/hr 09/17/22 19:50 09/17/22 20:34 Cleocin 900 Mg/50 Ml D5w IV 09/17/22 20:29 75 mls/hr ONCE ONE Administration Vital Signs: Temp Pulse Resp BP Pulse Ox 09/17/22 18:48 97.8 F 96 18 142/95 H 99 Discharge Plan Discharge Patient Disposition: ADMITTED INPATIENT Discharge Problem: Cellulitis of left leg Prescriptions: No Action quetiapine 25 mg tablet 25 mg PO TID Label Comments: TAKE 1 TABLET BY MOUTH THREE TIMES DAILY clonidine HCl 0.1 mg tablet 0.1 mg PO TID Label Comments: TAKE 1 TABLET BY MOUTH THREE TIMES DAILY amlodipine 5 mg tablet 5 mg PO TID Label Comments: TAKE 1 TABLET BY MOUTH EVERY DAY omeprazole 40 mg capsule,delayed release(DR/EC) 40 mg PO DAILY Label Comments: TAKE 1 CAPSULE BY MOUTH DAILY lorazepam 0.5 mg tablet 0.5 mg PO DAILY Label Comments: TAKE 1 TABLET BY MOUTH EVERY DAY gabapentin 300 mg capsule 600 mg PO TID Label Comments: TAKE 2 CAPSULE BY MOUTH THREE TIMES DAILY duloxetine 30 mg capsule,delayed release(DR/EC) 60 mg PO DAILY Label Comments: TAKE 2 CAPSULES BY MOUTH EVERY DAY cephalexin 500 mg capsule 500 mg PO QID Qty: 28 0RF buprenorphine-naloxone 8-2 mg film 1 film sublingual BID Label Comments: DISSOLVE 1 FILM ON THE TONGUE TWICE DAILY Did you review [place] [employer] REPRESENT[employer]IVE for ALL controlled substances?: Not Applicable ED Provider: CARIAN GUERRA Condition: Good Physician Progress Note: []
[2022-09-17 20:16] LABS: BASOPHILS # (AUTO) 0.1 K/uL (0-0.2); BASOPHILS % (AUTO) 0.9 % (0.0-3.0); EOSINOPHILS # (AUTO) 0.3 K/ul (0.0-0.7); EOSINOPHILS % (AUTO) 5.6 % (0.0-7.0); HEMATOCRIT 40.1 % (42.0-52.0); HEMOGLOBIN 13.8 g/dl (14.0-18.0); IMMATURE GRANULOCYTE % (AUTO) 0.2 % (0.0-5.0); LYMPHOCYTES # (AUTO) 1.8 K/uL (0.60-3.4); LYMPHOCYTES % (AUTO) 32.5 (10.0-50.0); MEAN CORPUSCULAR HEMOGLOBIN 30.3 pg (27.0-31.0); MEAN CORPUSCULAR HGB CONC 34.4 (31.8-35.4); MEAN CORPUSCULAR VOLUME 88.1 fl (80.0-94.0); MONOCYTES # (AUTO) 0.5 K/uL (0.4-2.0); MONOCYTES % (AUTO) 9.2 (0-10); NEUTROPHILS # (AUTO) 2.9 K/ul (2.0-6.9); NEUTROPHILS % (AUTO) 51.6 % (42.2-75.2); PLATELET COUNT 264 10^3/uL (140-440); RDW COEFFICIENT OF VARIATION 11.9 % (11.6-14.8); RED BLOOD COUNT 4.55 10^6/ul (4.70-6.10); WHITE BLOOD COUNT 5.54 K/ul (4.2-10.2)
[2022-09-17 20:28] LABS: ALANINE AMINOTRANSFERASE 46.6 U/L (0-50); ALBUMIN 4.62 g/dL (3.5-5.0); ALKALINE PHOSPHATASE 67.4 U/L (38-126); ASPARTATE AMINO TRANSFERASE 55.1 U/L (17-59); BILIRUBIN,TOTAL 0.78 mg/dL (0.2-1.3); BLOOD UREA NITROGEN 20.9 mg/dL (9-20); CALCIUM 9.4 mg/dL (8.4-10.2); CARBON DIOXIDE 28.5 mmol/L (22-30.0); CHLORIDE 102.4 mmol/L (98-107); CREATININE 0.67 mg/dL (0.60-1.10); GLUCOSE 103.1 mg/dL (74-106); POTASSIUM 3.33 mmol/L (3.5-5.1); SODIUM 138.6 mmol/L (134.5-145); TOTAL PROTEIN 7.74 g/dL (6.3-8.2); URIC ACID 5.71 mg/dL (3.5-8.5)
--- NOTE | 2022-09-17 20:36 | CT ---
EXAM: CT OF THE LEFT ANKLE WITHOUT CONTRAST History: Left ankle pain and swelling. Technique: Multiplanar CT images through the left ankle were obtained without the administration of IV contrast FINDINGS: Severe diffuse subcutaneous edema. No acute fracture or dislocation. No periostitis or c ortical destruction. Mild polyarticular joint space narrowing. Small calcaneal enthesophytes. Impression: 1. No acute osseous abnormality. 2. No evidence for osteomyelitis. 3. Severe diffuse subcutaneous edema All CT scans are performed using dose optimization techniques as appropriate to the performed exam an d include at least one of the following: Automated exposure control, adjustment of the mA and/or kV according t o size, and the use of iterative reconstruction technique.
--- NOTE | 2022-09-17 20:54 | CT ---
EXAM: CT OF THE LEFT FOOT WITHOUT CONTRAST TECHNIQUE: CT of the left foot was performed without IV contrast. Multiplanar reformats were made. HISTORY: Swelling and pain of the left foot. COMPARISON: None. FINDINGS: Bones are intact. No fracture or evidence of osteomyelitis. Mild scattered degenerative changes. N o aggressive appearing osseous outgrowth at the distal tibia extending towards the fibula suggesting an exostosis versus other benign osseous lesion. Calcaneal spurring. Os trigonum. Extensive subcutaneous edema and swelling. IMPRESSION: Subcutaneous edema in the foot and ankle. No fracture or CT evidence of osteomyelitis. All CT scans are performed using dose optimization techniques as appropriate to the performed exam an d include at least one of the following: Automated exposure control, adjustment of the mA and/or kV according t o size, and the use of iterative reconstruction technique.
[2022-09-17 20:59] LABS: ERYTHROCYTE SEDIMENTATION RATE 12 mm/hr (0-15)
[2022-09-17 21:57] LABS: SARS COV-2 RNA RAPID NAAT NEGATIVE (NEGATIVE)
--- NOTE | 2022-09-17 23:04 | PCM ---
Chief Complaint Chief Complaint: i think i have an infection doc History of Present Illness History of Present Illness: This is a 47 yr old male with remote hx of mrsa infection who presented to the Ed with left foot and leg swelling and redness and fever for 2-3 days prior. denies any hx of injury. Review of Systems Constitutional: Reports Fever Eyes: Reports No symptoms Ears: Reports No symptoms Nose: Reports No symptoms Throat: Reports No symptoms Mouth: Reports No symptoms Respiratory: Reports No symptoms Cardiovascular: Reports No symptoms Gastrointestinal: Reports No symptoms Genitourinary: Reports No symptoms Neurological: Reports No symptoms Musculoskeletal: Reports No symptoms Skin: Reports Rash Immunology: Reports No symptoms Hematology: Reports No symptoms Endocrine: Reports No symptoms Psychiatric: Reports No symptoms Habits: Reports Tobacco use, Substance use, Alcohol use and Other Allergies Allergies Allergy/AdvReac Type Severity Reaction Status Date / Time ondansetron AdvReac Vomiting Verified 09/17/22 23:01 Penicillins AdvReac Swelling Verified 09/17/22 23:01 venom-wasp [Wasp Venom] AdvReac Hives Verified 09/17/22 23:01 [facility] Medical History A-fib ADHD Anger Anxiety CAD (coronary artery disease) CHF (congestive heart failure) Chronic GERD Chronic hepatitis C Constipation Drug abuse Polysubstance abuse Surgical History H/O right heart catheterization Family History pgf Cardiac disease daughter drug exposure Social History Smoking and tobacco status: Current some day smoker Tobacco type: cigarettes Alcohol intake: never Substance use type: former substance user Medications Medications: Medications Generic Name Dose Route Start Last Admin Trade Name Freq PRN Reason Stop Dose Admin Amlodipine Besylate 5 mg 09/18/22 09:00 Amlodipine Besylate 5 Mg Tablet PO TID [facility] Clonidine 0.1 mg 09/18/22 09:00 Clonidine Hcl 0.1 Mg Tablet PO TID DEAN Duloxetine HCl 60 mg 09/18/22 09:00 Duloxetine Hcl 30 Mg Capsule. PO DAILY DEAN Enoxaparin Sodium 40 mg 09/18/22 09:00 Enoxaparin Sodium 40 Mg/0.4 Ml Syr SUBCUT DAILY [facility] Gabapentin 600 mg 09/18/22 09:00 Gabapentin 300 Mg Capsule PO TID DEAN Clindamycin Phosphate 900 mg in 50 mls @ 75 mls/hr 09/18/22 05:00 Cleocin 900 Mg/50 Ml D5w IV 09/21/22 04:59 Q8HR DEAN Lorazepam 0.5 mg 09/18/22 09:00 Lorazepam 0.5 Mg Tablet PO DAILY [facility] Non-Formulary Medication 1 film 09/18/22 09:00 Buprenorphine-Naloxone SL BID DEAN Omeprazole 40 mg 09/18/22 06:30 Omeprazole 20 Mg Capsule.Dr PO DAILY@0630 DEAN Quetiapine Fumarate 25 mg 09/18/22 09:00 Quetiapine Fumarate 25 Mg Tablet PO TID DEAN Sodium Chloride 1 syr 09/17/22 19:50 0.9% Sodium Chloride 10 Ml Disp.Syrin IVF PRN PRN To flush IV Body Composition Height: 6 ft Weight: 234 lb Body Mass Index (BMI): 31.7 Vital Signs Temperature: 97.8 F Pulse Rate: 96 Respiratory Rate: 18 Blood Pressure: 142/95 O2 Sat by Pulse Oximetry: 99 Physical Examination Appearance: Reports Well-appearing Ill-appearing: None Pain Distress: Mild Eyes: Reports JAYLYN, EOMI and Conjunctiva clear ENT: Reports Ears normal, Nose normal and Oropharynx normal Neck: Supple Respiratory: Reports Airway patent, Breath sounds clear, Breath sounds equal and Breath sounds diminished Cardiovascular: Reports RRR, Pulses normal, No rub and No murmur GI/: Reports Soft, Nontender, No masses and Bowel sounds normal Musculoskeletal: Reports Normal strength and Limited ROM Skin: Reports Warm, Dry and Other (noted erythema and warmth over left foot and noting erythema over the lower leg into the thigh--homans sign neg) Neurological: Reports Sensation intact, Motor intact, Reflexes intact, Cranial nerves intact, Alert and Oriented Psychiatric: Reports Affect appropriate and Mood appropriate Lab/Tests/Diagnostic Imaging Lab/Tests/Diagnostic Imaging: Lab Review 09/17/22 09/17/22 09/17/22 20:10 20:10 21:21 WBC 5.54 RBC 4.55 L Hgb 13.8 L Hct 40.1 L MCV 88.1 MCH 30.3 MCHC 34.4 RDW Coeff of Prasad 11.9 Plt Count 264 Immature Gran % (Auto) 0.2 Neut % (Auto) 51.6 Lymph % (Auto) 32.5 [place] % (Auto) 9.2 Eos % (Auto) 5.6 Baso % (Auto) 0.9 Neut # (Auto) 2.9 Lymph # (Auto) 1.8 [place] # (Auto) 0.5 Eos # (Auto) 0.3 Baso # (Auto) 0.1 Immature Gran # (Auto) 0.0 ESR 12 Sodium 138.6 Potassium 3.33 L Chloride 102.4 Carbon Dioxide 28.5 Anion Gap 11.03 BUN 20.9 H Creatinine 0.67 Estimated GFR (MDRD) 128.00 BUN/Creatinine Ratio 31.19 Glucose 103.1 Uric Acid 5.71 Calcium 9.40 Total Bilirubin 0.78 AST 55.1 ALT 46.6 Alkaline Phosphatase 67.4 Total Protein 7.74 Albumin 4.62 Globulin 3.12 Albumin/Globulin Ratio 1.48 SARS CoV-2 RNA Rapid BERENICE Negative Orders Category Date Time Status ADMIT PATIENT INPATIENT .TO [facility] (MONITORED BED) ADMISSION 09/17/22 21:20 Active ACTIVITY .Up ad Rea CARE 09/17/22 21:22 Active INTAKE & OUTPUT Q8HR CARE 09/17/22 21:22 Active IP: INSERT SALINE LOCK ONCE CARE 09/17/22 21:22 Active TELEMETRY MONITORING TELE CARE 09/17/22 21:21 Active TREATMENT ORDER:NURSING ONCE CARE 09/17/22 21:35 Active VITAL SIGNS Q8HR CARE 09/17/22 21:22 Active REGULAR DIET DIETARY 09/17/22 Breakfast Ordered ED IV/MEDIPORT/POWERPORT .ONCE EMERGENCY 09/17/22 19:50 Active BLOOD CULTURE (ED ONLY) Stat LAB 09/17/22 20:10 Received CBC W/ AUTO DIFF DAILY@0600 LAB 09/18/22 06:00 Ordered CBC W/ AUTO DIFF DAILY@0600 LAB 09/19/22 06:00 Ordered CBC W/ AUTO DIFF Stat LAB 09/17/22 20:10 Completed COMPREHENSIVE METABOLIC PANEL DAILY@0600 LAB 09/18/22 06:00 Ordered COMPREHENSIVE METABOLIC PANEL DAILY@0600 LAB 09/19/22 06:00 Ordered COMPREHENSIVE METABOLIC PANEL Stat LAB 09/17/22 20:10 Completed ESR Stat LAB 09/17/22 20:10 Completed SARS COV-2 RNA RAPID BERENICE Stat LAB 09/17/22 21:21 Completed URIC ACID Stat LAB 09/17/22 20:10 Completed 0.9 % Sodium Chloride [Saline Flush] MEDS 09/17/22 19:50 Active 1 syr IVF PRN PRN Amlodipine Besylate [Norvasc] MEDS 09/18/22 09:00 Pending 5 mg PO TID Clindamycin Phosphate/D5w [Cleocin 900 mg/50 ml D5w] MEDS 09/17/22 19:50 Discontinued 900 mg in 50 ml IV ONCE Clindamycin Phosphate/D5w [Cleocin 900 mg/50 ml D5w] MEDS 09/18/22 05:00 Active 900 mg in 50 ml IV Q8HR Clonidine HCl [Catapres] MEDS 09/18/22 09:00 Active 0.1 mg PO TID Duloxetine HCl [Cymbalta] MEDS 09/18/22 09:00 Active 60 mg PO DAILY Enoxaparin Sodium [Lovenox] MEDS 09/18/22 09:00 Active 40 mg SUBCUT DAILY Gabapentin [Neurontin] MEDS 09/18/22 09:00 Active 600 mg PO TID Lorazepam [Ativan] MEDS 09/18/22 09:00 Active 0.5 mg PO DAILY Omeprazole [Prilosec] MEDS 09/18/22 06:30 Active 40 mg PO DAILY@0630 Quetiapine Fumarate [Seroquel] MEDS 09/18/22 09:00 Active 25 mg PO TID buprenorphine-naloxone MEDS 09/18/22 09:00 Pending 1 film SL BID RESUSCITATION STATUS Routine OTHERS 09/17/22 21:[address] ANKLE LEFT WITHOUT CONTRAST Stat RADS 09/17/22 19:[address] FOOT LEFT WITHOUT CONTRAST Stat RADS 09/17/22 19:49 Completed U/S VENOUS SCAN LT LEG Routine RADS 09/17/22 21:29 Ordered Medications Generic Name Dose Route Start Last Admin Trade Name Freq PRN Reason Stop Dose Admin Amlodipine Besylate 5 mg 09/18/22 09:00 Amlodipine Besylate 5 Mg Tablet PO TID DEAN Clonidine 0.1 mg 09/18/22 09:00 Clonidine Hcl 0.1 Mg Tablet PO TID DEAN Duloxetine HCl 60 mg 09/18/22 09:00 Duloxetine Hcl 30 Mg Capsule. PO DAILY DEAN Enoxaparin Sodium 40 mg 09/18/22 09:00 Enoxaparin Sodium 40 Mg/0.4 Ml Syr SUBCUT DAILY [facility] Gabapentin 600 mg 09/18/22 09:00 Gabapentin 300 Mg Capsule PO TID DEAN Clindamycin Phosphate 900 mg in 50 mls @ 75 mls/hr 09/18/22 05:00 Cleocin 900 Mg/50 Ml D5w IV 09/21/22 04:59 Q8HR DEAN Lorazepam 0.5 mg 09/18/22 09:00 Lorazepam 0.5 Mg Tablet PO DAILY [facility] Non-Formulary Medication 1 film 09/18/22 09:00 Buprenorphine-Naloxone SL BID DEAN Omeprazole 40 mg 09/18/22 06:30 Omeprazole 20 Mg Capsule. PO DAILY@0630 [facility] Quetiapine Fumarate 25 mg 09/18/22 09:00 Quetiapine Fumarate 25 Mg Tablet PO TID [facility] Sodium Chloride 1 syr 09/17/22 19:50 0.9% Sodium Chloride 10 Ml Disp.Syrin IVF PRN PRN To flush IV Discontinued Medications Generic Name Dose Route Start Last Admin Trade Name Freq PRN Reason Stop Dose Admin Clindamycin Phosphate 900 mg in 50 mls @ 75 mls/hr 09/17/22 19:50 09/17/22 20:34 Cleocin 900 Mg/50 Ml D5w IV 09/17/22 20:29 75 mls/hr ONCE ONE Administration Assessment (1) Cellulitis of left leg: Status: Acute Code(s): L03.116 - Cellulitis of left lower limb SNOMED Code(s): 127080072 Plan Plan: iv antbx, dvt prophylaxis,,,check venous scan---check labs in am
[2022-09-17] MEDS ORDERED: TYLENOL PO ONE (23:56)
[2022-09-18] MEDS: SEROQUEL PO SCH ×3 (00:05→20:34)
[2022-09-18] MEDS: CATAPRES PO SCH ×2 (00:06→20:35)
[2022-09-18] MEDS: CLEOCIN 900 MG/50 ML D5W 900 MG/50 ML BAG IV SCH ×3 (05:21→20:34)
[2022-09-18] MEDS: PRILOSEC PO SCH (05:32)
[2022-09-18 05:47] LABS: BASOPHILS # (AUTO) 0.1 K/uL (0-0.2); BASOPHILS % (AUTO) 1.5 % (0.0-3.0); EOSINOPHILS # (AUTO) 0.4 K/ul (0.0-0.7); EOSINOPHILS % (AUTO) 8.9 % (0.0-7.0); HEMATOCRIT 39.3 % (42.0-52.0); HEMOGLOBIN 13.3 g/dl (14.0-18.0); IMMATURE GRANULOCYTE % (AUTO) 0.3 % (0.0-5.0); LYMPHOCYTES # (AUTO) 1.5 K/uL (0.60-3.4); LYMPHOCYTES % (AUTO) 38.9 (10.0-50.0); MEAN CORPUSCULAR HEMOGLOBIN 30.2 pg (27.0-31.0); MEAN CORPUSCULAR HGB CONC 33.8 (31.8-35.4); MEAN CORPUSCULAR VOLUME 89.1 fl (80.0-94.0); MONOCYTES # (AUTO) 0.4 K/uL (0.4-2.0); MONOCYTES % (AUTO) 10.7 (0-10); NEUTROPHILS # (AUTO) 1.6 K/ul (2.0-6.9); NEUTROPHILS % (AUTO) 39.7 % (42.2-75.2); PLATELET COUNT 248 10^3/uL (140-440); RDW COEFFICIENT OF VARIATION 11.8 % (11.6-14.8); RED BLOOD COUNT 4.41 10^6/ul (4.70-6.10); WHITE BLOOD COUNT 3.93 K/ul (4.2-10.2)
[2022-09-18 05:52] LABS: ALANINE AMINOTRANSFERASE 40.7 U/L (0-50); ALBUMIN 4.11 g/dL (3.5-5.0); ALKALINE PHOSPHATASE 57.8 U/L (38-126); ASPARTATE AMINO TRANSFERASE 49.9 U/L (17-59); BILIRUBIN,TOTAL 0.54 mg/dL (0.2-1.3); CALCIUM 8.95 mg/dL (8.4-10.2); CARBON DIOXIDE 29.9 mmol/L (22-30.0); CHLORIDE 104.9 mmol/L (98-107); CREATININE 0.74 mg/dL (0.60-1.10); GLUCOSE 101.6 mg/dL (74-106); POTASSIUM 3.77 mmol/L (3.5-5.1); TOTAL PROTEIN 6.94 g/dL (6.3-8.2)
[2022-09-18] MEDS ORDERED: SEROQUEL PO SCH (09:00)
[2022-09-18] MEDS ORDERED: CATAPRES PO SCH (09:00)
[2022-09-18] MEDS ORDERED: LOVENOX SUBCUT SCH (09:00)
[2022-09-18] MEDS ORDERED: NORVASC PO SCH (09:00)
[2022-09-18] MEDS: CYMBALTA PO SCH (09:07)
[2022-09-18] MEDS: NORVASC PO SCH (09:08)
[2022-09-18] MEDS: ATIVAN PO SCH (09:08)
[2022-09-18] MEDS: NEURONTIN PO SCH ×3 (09:08→20:35)
[2022-09-18] MEDS: NON-FORMULARY MEDICATION (Buprenorphine-Naloxone 8-2 mg film) SL SCH ×2 (09:22→20:33)
--- NOTE | 2022-09-18 13:54 | PCM.PROG ---
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
[2022-09-18] MEDS: LOVENOX SUBCUT SCH (20:35)
[2022-09-19 05:30] VITALS: TEMP 97
[2022-09-19 05:32] LABS: BASOPHILS # (AUTO) 0.1 K/uL (0-0.2); BASOPHILS % (AUTO) 1.3 % (0.0-3.0); EOSINOPHILS # (AUTO) 0.3 K/ul (0.0-0.7); HEMATOCRIT 42.1 % (42.0-52.0); HEMOGLOBIN 14.1 g/dl (14.0-18.0); IMMATURE GRANULOCYTE % (AUTO) 0.2 % (0.0-5.0); LYMPHOCYTES # (AUTO) 1.1 K/uL (0.60-3.4); LYMPHOCYTES % (AUTO) 24.3 (10.0-50.0); MEAN CORPUSCULAR HEMOGLOBIN 30.1 pg (27.0-31.0); MEAN CORPUSCULAR HGB CONC 33.5 (31.8-35.4); MEAN CORPUSCULAR VOLUME 89.8 fl (80.0-94.0); MONOCYTES # (AUTO) 0.3 K/uL (0.4-2.0); MONOCYTES % (AUTO) 6.2 (0-10); NEUTROPHILS # (AUTO) 2.9 K/ul (2.0-6.9); PLATELET COUNT 245 10^3/uL (140-440); RDW COEFFICIENT OF VARIATION 11.9 % (11.6-14.8); RED BLOOD COUNT 4.69 10^6/ul (4.70-6.10); WHITE BLOOD COUNT 4.69 K/ul (4.2-10.2)
[2022-09-19 05:48] LABS: ALANINE AMINOTRANSFERASE 40.9 U/L (0-50); ALBUMIN 4.32 g/dL (3.5-5.0); ASPARTATE AMINO TRANSFERASE 43.6 U/L (17-59); BILIRUBIN,TOTAL 0.44 mg/dL (0.2-1.3); BLOOD UREA NITROGEN 15.5 mg/dL (9-20); CALCIUM 9.01 mg/dL (8.4-10.2); CARBON DIOXIDE 30.7 mmol/L (22-30.0); CHLORIDE 104.7 mmol/L (98-107); CREATININE 0.73 mg/dL (0.60-1.10); GLUCOSE 102.7 mg/dL (74-106); POTASSIUM 3.93 mmol/L (3.5-5.1); TOTAL PROTEIN 7.44 g/dL (6.3-8.2)
[2022-09-19] MEDS: CLEOCIN 900 MG/50 ML D5W 900 MG/50 ML BAG IV SCH ×2 (05:49→14:24)
[2022-09-19] MEDS: PRILOSEC PO SCH (05:49)
--- NOTE | 2022-09-19 09:56 | PCM.PROG ---
Date Seen by Provider: 09/19/22 Time Seen by Provider: 09:15 Subjective: No complaints. Objective: Vitals: T=97.0 F, P=76, R=20, TP=050/73, MFC8=[id number] and in NAD. HEENT: [] Neck: [] Lungs: [] CVS: [] Abdomen: [] Extremities: []Erythema and edema improved. Neurological: [] Skin: [] Lab/Tests/Diagnostic Imaging: [] (1) Cellulitis of left leg: Status: Acute Code(s): L03.116 - Cellulitis of left lower limb SNOMED Code(s): 401537835 Assessment: Improved. Plan: Patient to have venous doppler. Discharge home on oral antibiotics if no DVT.
[2022-09-19] MEDS: CYMBALTA PO SCH (10:09)
[2022-09-19] MEDS: SEROQUEL PO SCH (10:10)
[2022-09-19] MEDS: NEURONTIN PO SCH ×2 (10:10→15:31)
[2022-09-19] MEDS: ATIVAN PO SCH (10:11)
[2022-09-19] MEDS: NORVASC PO SCH (10:11)
[2022-09-19] MEDS: LOVENOX SUBCUT SCH (10:12)
[2022-09-19] MEDS: NON-FORMULARY MEDICATION (Buprenorphine-Naloxone 8-2 mg film) SL SCH (10:14)
--- NOTE | 2022-09-19 12:02 | PCM.DC ---
Final Diagnosis: cellulitis left leg Physical Exam Appearance: Well-appearing, No pain distress and Well-nourished Ill-appearing: None Pain Distress: None Eyes: Not Examined ENT: Nose normal and Oropharynx normal Neck: Supple Respiratory: Airway patent, Breath sounds clear and Breath sounds equal Cardiovascular: RRR, No rub and No murmur GI/: Soft, Nontender, No masses and Bowel sounds normal Musculoskeletal: Normal strength, ROM intact and Edema (Moderate swelling LLE; improving. Mild erythema LLQ; improving.) Skin: Warm and Dry Neurological: Alert and Oriented Psychiatric: Affect appropriate and Mood appropriate (1) Cellulitis of left leg: Status: Acute Code(s): L03.116 - Cellulitis of left lower limb SNOMED Code(s): 395140311 Reason for Hospitalization: cellulitis LLE Prognosis/Condition at Discharge: Condition at discharge was good Medications at Discharge: cephalexin in addition to the same medications as at admission Education Provided to Patient and Family: cellulitis Follow-ups: Follow up with your primary care provider this week. Discharge Disposition: Home Hospital Course: Patient admitted with cellulitis of the LLE. He was treated with IV antibiotics. The swelling and erythema were noted to improve. Venous doppler proved no evidence of DVT. Plan: Follow up with your primary care provider this week.
--- NOTE | 2022-09-19 13:54 | US ---
EXAM: BILATERAL LOWER EXTREMITY VENOUS DOPPLER. HISTORY: Bilateral leg pain and swelling. Elevated D-dimer. COMPARISON: None. TECHNIQUE: A duplex Doppler study was performed consisting of integrated two dimensional (2D) real-t lia imaging color flow Doppler and Doppler spectral analysis utilizing linear array probes. FINDINGS: There is normal flow, venous waveforms, compressibility and augmentation of flow within th e right and left common femoral, greater saphenous, profunda, femoral, popliteal, posterior tibial, a nterior tibial and peroneal veins. IMPRESSION: No evidence for right or left lower extremity deep vein thrombosis at the levels examined.
[2022-09-19 14:30] VITALS: BP 113/65
== END 2022-09-19 16:27 | disposition home or self-care (01) ==
LOC: ED 18:46 → MEDSURG A 22:03 → INTOOBSV 22:03 → MEDSURG A 22:53
PROVIDERS: ADMIT Family Medicine; ATTEND Surgery
DX: I50.9 Heart failure, unspecified; Z79.899 Other long term (current) drug therapy; Z86.19 Personal history of other infectious and parasitic diseases; K21.9 Gastro-esophageal reflux disease without esophagitis; Z20.822 Contact with and (suspected) exposure to COVID-19; I48.91 Unspecified atrial fibrillation; F19.11 Other psychoactive substance abuse, in remission; Z86.14 Personal history of Methicillin resistant Staphylococcus aureus infection; I25.10 Atherosclerotic heart disease of native coronary artery without angina pectoris; R50.9 Fever, unspecified; Z82.49 Family history of ischemic heart disease and other diseases of the circulatory system; Z51.81 Encounter for therapeutic drug level monitoring; F90.9 Attention-deficit hyperactivity disorder, unspecified type; F41.9 Anxiety disorder, unspecified; F17.210 Nicotine dependence, cigarettes, uncomplicated; L03.116 Cellulitis of left lower limb